=== PATIENT | male | born 1980 | race African-American/Black ===

== ENCOUNTER 2024-01-01 12:09 | Outpatient (CLI) | payer BC, SELFPAY ==
--- NOTE | ~2024-01-01 | XR_ITS ---
3 VIEWS LUMBAR SPINE Ordering provider: Bebeto Manriquez MD History: . Chronic low back pain with Lt sided sciatica . Comparison: None. FINDINGS: VERTEBRAL BODIES: No visible fracture or subluxation. DISK SPACES: Normal. SOFT TISSUES: Normal. IMPRESSION: No acute osseous abnormality lumbar spine. Reviewed, dictated and finalized at location A.
== END 2024-01-01 12:10 ==
PROVIDERS: PCP Internal Medicine; Visit Provider Internal Medicine
DX: M54.50 Low back pain, unspecified (principal); M54.30 Sciatica, unspecified side; G89.29 Other chronic pain
CPT/HCPCS: 72110

== ENCOUNTER 2024-10-25 14:53 | Emergency (ER) | payer SELFPAY ==
[2024-10-25] VITALS (7 sets, daily range): BP systolic 142–155; BP diastolic 102–111; PULSE 88–108; RESP 16–22; TEMP 36.4–36.8; O2SAT 100
--- NOTE | ~2024-10-25 | CT_ITS ---
CT brain wo con Ordering provider: Sidra York APRN History: 44 years Male with . altered mental status . Comparison: None. Technique: CT of the head without contrast. Radiation reduction technique utilized.The dose-length pr oduct was 681 mGy-cm. FINDINGS: BRAIN PARENCHYMA AND CSF SPACES: Mild leukoaraiosis and diffuse cortical atrophy. Mild atheromatous d isease. No midline shift, mass effect or hemorrhage. The brain parenchyma and CSF spaces are otherwi se normal. Empty sella turcica. VISUALIZED PARANASAL SINUSES: Well aerated. MASTOIDS: Well aerated. BONES: The bones appear intact. SOFT TISSUES: Visualized nasopharynx is normal. Superficial soft tissues are normal. IMPRESSION: No acute intracranial findings. Reviewed, dictated and finalized at location A.
--- OUTSIDE RECORDS SUMMARY | 2024-10-25 14:55 | XMS_ITS | Data Portability ---
Author Organization [facility], [facility] Address [address] [place] [address] [address] Assessment No assessment recorded. Plan of Treatment Reminders Order Date Submit Date Provider Last Modified By Organization Details Last Modified Time Details Appointments None recorded. Lab None recorded. Referral None recorded. Procedures None recorded. Surgeries None recorded. Imaging None recorded. Medication Orders varenicline tartrate 0.5 mg (11)-1 mg (42) tablets in a dose pack 2023 [facility] [employer] [id number], [address], [place], [id number], 4 10:59:26 varenicline tartrate 1 mg tablet 2023 [facility] [employer] [address], [address], [place], [id number], 4 10:59:25 mupirocin 2 % topical ointment 2023 [email or web address] Not available 12:57:37 Lexapro 10 mg tablet 2023 [facility] [employer] [id number], [address], [place], [id number], 4 10:57:25 nitroglycer in 0.4 mg sublingual tablet 2023 [facility] [employer] [id number], [address], [place], [id number], 4 12:16:28 Patient TargetsNo targets recorded. Patient InstructionsNo instructions recorded. Hospital Discharge Instructions Patient Instructions None recorded. Patient Goals None recorded. Results Created Date Observation Date Name Description Value Unit Range Abnormal Flag Note LastModifiedBy Organization Detail LastModifiedTime 06/26/20 23 06/26/2023 Agustin ol [Mass /volu me] in Blood ETOH <10.00 mg/dL 0.00-3 00.00 Not Available [facility] (Lab) [address] [place] [address] [place], [address], Not Available 06/26/20 23 06/26/2023 Gas panel - Arter ial blood PO2 96 mmHg 78-101 Not Available [facility] (Lab) [address] [place] [address] KnJ[place] bermudez, [address], Not Available 06/26/20 23 06/26/2023 Gas panel - Arter ial blood PCO2 20 mmHg 35-47 Not Available [facility] (Lab) [address] [place] [address] KnJESS [place]z, [address], Not Available 06/26/20 23 06/26/2023 Gas panel - Arter ial blood PH_ 7.400 7.350- 7.450 Not Available [facility] (Lab) [address] [place] [address] [place], [address], Not Available 06/26/20 23 06/26/2023 Gas panel - Arter ial blood SO2 99 % 93-100 Not Available [facility] (Lab) [address] [place] [address] [place], [address], Not Available 06/26/20 23 06/26/2023 Gas panel - Arter ial blood COHB 0.40 % 0.30-1 .00 Not Available [facility] (Lab) [address] [place] [address] [place], [address], Not Available 06/26/20 23 06/26/2023 Gas panel - Arter ial blood METHB 0.30 % 0.30-1 .00 Not Available [facility] (Lab) [address] [place] [address] [place], [address], Not Available 06/26/20 23 06/26/2023 Gas panel - Arter ial blood O2HB 98.30 % 85.00- 100.00 Not Available [facility] (Lab) [address] [place] [address] [place], [address], Not Available 06/26/20 23 06/26/2023 Gas panel - Arter ial blood TCO2 12.9 mmol/ L 22.1-2 9.5 Not Available [facility] (Lab) [address] [place] [address] [place], J[place], [address], Not Available 06/26/20 23 06/26/2023 Gas panel - Arter ial blood HCO3 12 mmol/ L Not Available [facility] (Lab) [address] [place] [address] [place], [address], Not Available 06/26/20 23 06/26/2023 Gas panel - Arter ial blood BASE EXCESS -9.5 mmol/ L -2.1-2 .2 Not Available [facility] (Lab) [address] [place] [address] [place], JESS, 14[address], Not Available 06/26/20 23 06/26/2023 Influ yumiko virus A and B and SARS- CoV+S ARS-C oV-2 (COVI D-19) Ag panel - Upper respi rator y speci men by Rapid immun oassa y COVID RAPID NEGATI VE NEGATI VE Negat carmen resul ts, from patie nts with sympt om onset beyon d five days, shoul d be treat ed as presu mptiv e and confi rmati on with a molec ular assay , if neces michaela, for patie nt manag ement , may be perfo rmed. Negat carmen resul ts do not rule out COVID -19 and shoul d not be used as the sole basis for treat ment or patie nt manag ement decis ions, inclu ding infec tion contr ol decis ions. Negat carmen resul ts shoul d be consi dered in the sherri xt of a patie nt's recen t expos ures, histo ry and the prese nce of clini jass signs and sympt oms consi stent with COVID -19. Not Available [facility] (Lab) [address] [place] [address] J[place] Mc, [address], Not Available 06/26/20 23 06/26/2023 Influ yumiko virus A and B and SARS- CoV+S ARS-C oV-2 (COVI D-19) Ag panel - Upper respi rator y speci men by Rapid immun oassa y FLUB Negati ve NEGATI VE Not Available [facility] (Lab) [address] [place] [address] [place], [address], Not Available 06/26/20 23 06/26/2023 Influ yumiko virus A and B and SARS- CoV+S ARS-C oV-2 (COVI D-19) Ag panel - Upper respi rator y speci men by Rapid immun oassa y FLUA Negati ve NEGATI VE Not Available [facility] (Lab) [address] [place] [address] [place], [address], Not Available 06/26/20 23 06/26/2023 Magne sium [Mass /volu me] in Serum or Plasm a MG 1.3 mg/dL 1.8-2. 5 Not Available [facility] (Lab) [address] [place] [address] [place], [address], Not Available 06/26/20 23 06/26/2023 Tropo ankita I.car diac [Mass /volu me] in Serum or Plasm a by Detec tion limit <= 0.01 ng/mL TROP 0.06 Result s Verifi ed by Repeat Analys is ng/ml 0.00-0 .03 Not Available [facility] (Lab) [address] [place] [address] [place], [address], Not Available 06/26/20 23 06/26/2023 Lacta te [Mass /volu me] in Serum or Plasm a LA 44.00 mg/dL 4.60-2 1.10 Not Available [facility] (Lab) [address] [place] [address] [place], [address], Not Available 06/26/20 23 06/26/2023 Lacta te [Mass /volu me] in Serum or Plasm a LA MMOL 4.88 mmol/ l 0.50-2 .20 Not Available [facility] (Lab) [address] [place] [address] [place], [address], Not Available 06/26/20 23 06/26/2023 Andreea duran al panel - Blood NEUTROPHILS 71 % 37-80 Not Available [facility] (Lab) [address] [place] [address] [place], [address], Not Available 06/26/20 23 06/26/2023 Andreea duran al panel - Blood LYMPHOCY 8 % 10-50 Not Available [facility] (Lab) [address] [place] [address] [place], [address], Not Available 06/26/20 23 06/26/2023 Andreea duran al panel - Blood MONOCYTE 6 % 1-8 Not Available [facility] (Lab) [address] [place] [address] [place], [address], Not Available 06/26/20 23 06/26/2023 Andreea duran al panel - Blood BANDS 14 % 0-0 Not Available [facility] (Lab) [address] [place] [address] [place], [address], Not Available 06/26/20 23 06/26/2023 Andreea duran al panel - Blood METAMYEL 1 % 0-0 Not Available [facility] (Lab) [address] [place] [address] [place], [address], Not Available 06/26/20 23 06/26/2023 Nasraa anish duran al panel - Blood RBC MORPH ABNORM AL NORMAL Not Available [facility] (Lab) [address] [place] [address] [place], [address], Not Available 06/26/20 23 06/26/2023 Andreea duran al panel - Blood PLATELET ESTIMATE ADEQUA TE ADEQUA TE Not Available [facility] (Lab) [address] [place] [address] [place], [address], Not Available 06/26/20 23 06/26/2023 Andreea duran al panel - Blood ANISOCYTOSIS 1+ NONE SEEN Not Available [facility] (Lab) [address] [place] [address] [place], [address], Not Available 06/26/20 23 06/26/2023 Andreea duran al panel - Blood MACROCYTOSIS 1+ NONE SEEN Not Available [facility] (Lab) [address] [place] [address] [place], [address], Not Available 06/26/20 23 06/26/2023 Andreea duran al panel - Blood MICROCYTOSIS 1+ NONE SEEN Not Available [facility] (Lab) [address] [place] [address] [place], [address], Not Available 06/26/20 23 06/26/2023 Andreea duran al panel - Blood STOMATOCYTES 1+ NONE SEEN Not Available [facility] (Lab) [address] [place] [address] [place], [address], Not Available 06/26/20 23 06/26/2023 Salic ylate s [Mass /volu me] in Serum or Plasm a ROCK <5.0 mg/dL 0.0-6. 0 Not Available [facility] (Lab) [address] [place] [address] [place], [address], Not Available 06/26/20 23 06/26/2023 Fibri n D-dim er FEU [Mass /volu me] in Plate let poor plasm a DDIMER 2.26 Result s Verifi ed by Repeat Analys is mg/L 0.00-0 .50 Not Available [facility] (Lab) [address] [place] [address] [place], [address], Not Available 06/26/20 23 06/26/2023 Creat ine kinas e [Enzy matic activ ity/v olume ] in Serum or Plasm a CK 908 U/L 29-208 Not Available [facility] (Lab) [address] [place] [address] [place], [address], Not Available 06/26/20 23 06/26/2023 Compr ehens carmen metab olic 2000 panel - Serum or Plasm a GLUC 158 mg/dL 66-112 Not Available [facility] (Lab) [address] [place] [address] [place], [address], Not Available 06/26/20 23 06/26/2023 Compr ehens carmen metab olic 2000 panel - Serum or Plasm a BUN 5 mg/dL 8-28 Not Available [facility] (Lab) [address] [place] [address] [place], [address], Not Available 06/26/20 23 06/26/2023 Compr ehens carmen metab olic 2000 panel - Serum or Plasm a CREAT 1.20 mg/dl 0.70-1 .40 Not Available [facility] (Lab) [address] [place] [address] [place], [address], Not Available 06/26/20 23 06/26/2023 Compr ehens carmen metab olic 2000 panel - Serum or Plasm a NA 130 mmol/ L 134-14 5 Not Available [facility] (Lab) [address] [place] [address] [place], [address], Not Available 06/26/20 23 06/26/2023 Compr ehens carmen metab olic 2000 panel - Serum or Plasm a K 3.3 mmol/ L 3.5-5. 2 Not Available [facility] (Lab) [address] [place] [address] [place], [address], Not Available 06/26/20 23 06/26/2023 Compr ehens carmen metab olic 2000 panel - Serum or Plasm a CL 87 mmol/ L 97-109 Not Available [facility] (Lab) [address] [place] [address] [place] Mc, 937[address], Not Available 06/26/20 23 06/26/2023 Compr ehens carmen metab olic 2000 panel - Serum or Plasm a CO2 15 mmol/ L 19-29 Not Available [facility] (Lab) [address] [place] [address] [place] Mc, 215[address], Not Available 06/26/20 23 06/26/2023 Compr ehens carmen metab olic 1999 panel - Serum or Plasm a CA 10.7 mg/dL 8.5-10 .3 Not Available [facility] (Lab) [address] [place] [address] J[place] Mc, 01574, Not Available 06/26/20 23 06/26/2023 Compr ehens carmen metab olic 1999 panel - Serum or Plasm a TP 7.7 g/dL 6.3-8. 3 Not Available [facility] (Lab) [address] [place] [address] [place] Mc, 575[address], Not Available 06/26/20 23 06/26/2023 Compr ehens carmen metab olic 1999 panel - Serum or Plasm a ALB 4.3 g/dL 3.4-4. 7 Not Available [facility] (Lab) [address] [place] [address] [place] Mc, 89[address], Not Available 06/26/20 23 06/26/2023 Compr ehens carmen metab olic 1999 panel - Serum or Plasm a GLOB 3.4 g/dL Not Available [facility] (Lab) [address] [place] [address] J[place] Mc, 739[address], Not Available 06/26/20 23 06/26/2023 Compr ehens carmen metab olic 2000 panel - Serum or Plasm a ALKP 73 U/L 36-103 Not Available [facility] (Lab) [address] [place] [address] [place], [address], Not Available 06/26/20 23 06/26/2023 Compr ehens carmen metab olic 2000 panel - Serum or Plasm a ALT 118 U/L 6-55 Not Available [facility] (Lab) [address] [place] [address] J[place] Mc, 873[address], Not Available 06/26/20 23 06/26/2023 Compr ehens carmen metab olic 2000 panel - Serum or Plasm a AST 114 U/L 9-42 Not Available [facility] (Lab) [address] [place] [address], [address], Not Available 06/26/20 23 06/26/2023 Compr ehens carmen metab olic 2000 panel - Serum or Plasm a TBIL 2.4 mg/dL 0.2-0. 9 Not Available [facility] (Lab) [address] [place] [address], [address], Not Available 06/26/20 23 06/26/2023 Compr ehens carmen metab olic 2000 panel - Serum or Plasm a BCRATIO 4 ratio 6-25 Not Available [facility] (Lab) [address] [place] [address], [address], Not Available 06/26/20 23 06/26/2023 Compr ehens carmen metab olic 2000 panel - Serum or Plasm a AGRATIO 1.3 ratio Not Available [facility] (Lab) [address] [place] [address], [address], Not Available 06/26/20 23 06/26/2023 Compr ehens carmen metab olic 2000 panel - Serum or Plasm a EGFRAA 86 mL/mi n Not Available [facility] (Lab) [address] [place] [address], [address], Not Available 06/26/20 23 06/26/2023 Compr ehens carmen metab olic 2000 panel - Serum or Plasm a EGFRNAA 71 mL/mi n Not Available [facility] (Lab) [address] [place] [address], [address], Not Available 06/26/20 23 06/26/2023 Compr ehens carmen metab olic 2000 panel - Serum or Plasm a ANIONG 28.00 Not Available [facility] (Lab) [address] [place] [address], [address], Not Available 06/26/20 23 06/26/2023 Urina lysis compl ete W Refle x Cultu re panel - Urine COLOR Yellow YELLOW Not Available [facility] (Lab) [address] [place] [address] J[place] Mc, 211[address], Not Available 06/26/20 23 06/26/2023 Urina lysis compl ete W Refle x Cultu re panel - Urine JERRICA Clear CLEAR Not Available [facility] (Lab) [address] [place] [address] [place] Mc, 79984, Not Available 06/26/20 23 06/26/2023 Urina lysis compl ete W Refle x Cultu re panel - Urine GLU Negati ve mg/dL NEGATI VE Not Available [facility] (Lab) [address] [place] [address] J[place] Mc, 27[address], Not Available 06/26/20 23 06/26/2023 Urina lysis compl ete W Refle x Cultu re panel - Urine BILI Modera te NEGATI VE Not Available [facility] (Lab) [address] [place] [address] [place] JESS, 76[address], Not Available 06/26/20 23 06/26/2023 Urina lysis compl ete W Refle x Cultu re panel - Urine KETONE 15 mg/dL NEGATI VE Not Available [facility] (Lab) [address] [place] [address] [place] JESS, 108[address], Not Available 06/26/20 23 06/26/2023 Urina lysis compl ete W Refle x Cultu re panel - Urine SG 1.010 1.005- 1.020 Not Available [facility] (Lab) [address] [place] [address] [place] JESS, [address], Not Available 06/26/20 23 06/26/2023 Urina lysis compl ete W Refle x Cultu re panel - Urine BLOOD Trace- intact NEGATI VE Not Available [facility] (Lab) [address] [place] [address] [place] JESS, 104[address], Not Available 06/26/20 23 06/26/2023 Urina lysis compl ete W Refle x Cultu re panel - Urine PH 6.0 5.5-7. 5 Not Available [facility] (Lab) [address] [place] [address] [place], [address], Not Available 06/26/20 23 06/26/2023 Urina lysis compl ete W Refle x Cultu re panel - Urine PRO 100 mg/dL mg/dL NEGATI VE Not Available [facility] (Lab) [address] [place] [address] [place], [address], Not Available 06/26/20 23 06/26/2023 Urina lysis compl ete W Refle x Cultu re panel - Urine URO 2.0 E.U./d L 0.2-1. 0 Not Available [facility] (Lab) [address] [place] [address] [place], 595[address], Not Available 06/26/20 23 06/26/2023 Urina lysis compl ete W Refle x Cultu re panel - Urine NITR Negati ve NEGATI VE Not Available [facility] (Lab) [address] [place] [address] [place], [address], Not Available 06/26/20 23 06/26/2023 Urina lysis compl ete W Refle x Cultu re panel - Urine LEUK Negati ve NEGATI VE Not Available [facility] (Lab) [address] [place] [address] [place], [address], Not Available 06/26/20 23 06/26/2023 Urina lysis compl ete W Refle x Cultu re panel - Urine UWBC 0-3 0-3 Not Available [facility] (Lab) [address] [place] [address] [place], [address], Not Available 06/26/20 23 06/26/2023 Urina lysis compl ete W Refle x Cultu re panel - Urine URBC 3-5 0-3 Not Available [facility] (Lab) [address] [place] [address] [place], [address], Not Available 06/26/20 23 06/26/2023 Urina lysis compl ete W Refle x Cultu re panel - Urine SQEPCELLS 0-3 NONE SEEN Not Available [facility] (Lab) [address] [place] [address], [address], Not Available 06/26/20 23 06/26/2023 Urina lysis compl ete W Refle x Cultu re panel - Urine BACTERIA TRACE NONE SEEN Not Available [facility] (Lab) [address] [place] [address], [address], Not Available 06/26/20 23 06/26/2023 Urina lysis compl ete W Refle x Cultu re panel - Urine UACR NO Not Available [facility] (Lab) [address] [place] [address], [address], Not Available 06/26/20 23 06/26/2023 Proca lcito ankita [Mass /volu me] in Serum or Plasm a PROCAL 2.22 ng/mL 0.00-0 .15 Not Available [facility] (Lab) [address] [place] [address], [address], Not Available 06/26/20 23 06/26/2023 Creat ine kinas e.MB [Mass /volu me] in Serum or Plasm a CKMB 8.49 ng/mL 0.60-4 .80 Not Available [facility] (Lab) [address] [place] [address], [address], Not Available 06/26/20 23 06/26/2023 Thyro xine (T4) free [Mass /volu me] in Serum or Plasm a FT4 1.19 ng/dL 0.61-1 .12 Not Available [facility] (Lab) [address] [place] [address], [address], Not Available 06/26/20 23 06/26/2023 Natri ureti c pepti de B [Mass /volu me] in Blood BNP 1606 Result s Verifi ed by Repeat Analys is pg/mL 0-100 Not Available [facility] (Lab) [address] [place] [address], [address], Not Available 06/26/20 23 06/26/2023 Thyro tropi n [Unit s/vol ume] in Serum or Plasm a by Detec tion limit <= 0.005 mIU/L TSH 2.760 uIU/m L 0.440- 4.990 Not Available [facility] (Lab) [address] [place] [address] [place], [address], Not Available 06/26/20 23 06/26/2023 CBC W Auto Diffe renti al panel - Blood WBC 15.50 Result s Verifi ed by Repeat Analys is x10^3 /UL 4.70-1 0.70 Not Available [facility] (Lab) [address] [place] [address] [place] Mc, 20[address], Not Available 06/26/20 23 06/26/2023 CBC W Auto Diffe renti al panel - Blood RBC 4.05 X10^6 /UL 3.72-5 .35 Not Available [facility] (Lab) [address] [place] [address] [place], 367[address], Not Available 06/26/20 23 06/26/2023 CBC W Auto Diffe renti al panel - Blood HGB 13.9 g/dL 12.8-1 6.3 Not Available [facility] (Lab) [address] [place] [address] [place], [address], Not Available 06/26/20 23 06/26/2023 CBC W Auto Diffe renti al panel - Blood HCT 40.4 % 36.1-4 7.1 Not Available [facility] (Lab) [address] [place] [address] [place], [address], Not Available 06/26/20 23 06/26/2023 CBC W Auto Diffe renti al panel - Blood MCV 99.7 fL 81.0-9 6.8 Not Available [facility] (Lab) [address] [place] [address] [place] JESS, 737[address], Not Available 06/26/20 23 06/26/2023 CBC W Auto Diffe renti al panel - Blood MCH 34.3 PG 27.1-3 3.3 Not Available [facility] (Lab) [address] [place] [address] [place], 80[address], Not Available 06/26/20 23 06/26/2023 CBC W Auto Diffe renti al panel - Blood MCHC 34.4 g/dL 32.8-3 5.5 Not Available [facility] (Lab) [address] [place] [address] [place], 26[address], Not Available 06/26/20 23 06/26/2023 CBC W Auto Diffe renti al panel - Blood RDW 15.7 % 0.0-14 .8 Not Available [facility] (Lab) [address] [place] [address] [place], [address], Not Available 06/26/20 23 06/26/2023 CBC W Auto Diffe renti al panel - Blood PLT 226 x10^3 /UL 126-42 1 Not Available [facility] (Lab) [address] [place] [address] [place] JESS, 338[address], Not Available 06/26/20 23 06/26/2023 CBC W Auto Diffe renti al panel - Blood MPV 9.10 fL 7.00-1 1.50 Not Available [facility] (Lab) [address] [place] [address] [place] JESS, 37[address], Not Available 06/26/20 23 06/26/2023 CBC W Auto Diffe renti al panel - Blood %NEUT 85.20 % 37.00- 80.00 Not Available [facility] (Lab) [address] [place] [address] [place] JESS, 32287, Not Available 06/26/20 23 06/26/2023 CBC W Auto Diffe renti al panel - Blood %LYMPH 5.80 % 10.00- 50.00 Not Available [facility] (Lab) [address] [place] [address] [place] JESS, 48464, Not Available 06/26/20 23 06/26/2023 CBC W Auto Diffe renti al panel - Blood %MONO 8.70 % 3.00-1 2.00 Not Available [facility] (Lab) [address] [place] [address] [place], 669[address], Not Available 06/26/20 23 06/26/2023 CBC W Auto Diffe renti al panel - Blood %EOS 0.0 % 0.0-7. 0 Not Available [facility] (Lab) [address] [place] [address] [place] Mc, 436[address], Not Available 06/26/20 23 06/26/2023 CBC W Auto Diffe renti al panel - Blood %BASO 0.30 % 0.00-2 .00 Not Available [facility] (Lab) [address] [place] [address] [place], [address], Not Available 06/26/20 23 06/26/2023 CBC W Auto Diffe renti al panel - Blood #NEUT 13.300 x10^3 /UL 2.000- 6.900 Not Available [facility] (Lab) [address] [place] [address] [place], [address], Not Available 06/26/20 23 06/26/2023 CBC W Auto Diffe renti al panel - Blood #LYMPH 0.900 x10^3 /UL 0.600- 3.400 Not Available [facility] (Lab) [address] [place] [address] [place], [address], Not Available 06/26/20 23 06/26/2023 CBC W Auto Diffe renti al panel - Blood #MONO 1.400 x10^3 /UL 0.100- 0.900 Not Available [facility] (Lab) [address] [place] [address] [place], [address], Not Available 06/26/20 23 06/26/2023 CBC W Auto Diffe renti al panel - Blood #EOS 0.000 K/uL 0.000- 0.700 Not Available [facility] (Lab) [address] [place] [address] [place], [address], Not Available 06/26/20 23 06/26/2023 CBC W Auto Diffe renti al panel - Blood #BASO 0.000 K/uL 0.000- 0.200 Not Available [facility] (Lab) [address] [place] [address], [address], Not Available 06/26/20 23 06/26/2023 CBC W Auto Diffe renclaudia al panel - Blood MDW 27.70 0.00-2 0.00 The predi ctive value of MDW for ident ifyin g sepsi s in patie nts with hemat ologi jass abnor malit ies has not been estab lishe d For adult s in ED, MDW > 20.0 may be assoc iated with a highe r risk of sepsi s durin g the first 12 hrs of hospi erica admis victorina Not Available [facility] (Lab) [address] [place] [address], [address], Not Available 06/26/20 23 06/26/2023 C react carmen prote in [Mass /volu me] in Serum or Plasm a CRP 326.70 Result s Verifi ed by Repeat Analys is mg/L <5.00 Not Available [facility] (Lab) [address] [place] [address], 455[address], Not Available 06/30/20 23 06/30/2023 Bacte sherrill ident ified in Blood by Cultu re PLACEHOLDER SENT TO [facility] Not Available [facility] (Lab) [address] [place] [address], 201[address], Not Available 06/30/20 23 06/30/2023 Bacte sherrill ident ified in Blood by Cultu re BLOOD CULTURE, ROUTINE Final report Not Available [facility] (Lab) [address] [place] [address], 490[address], Not Available 06/30/20 23 06/30/2023 Bacte sherrill ident ified in Blood by Cultu re RESULT 1 Commen t Strep tococ cus pneum oniae Recov ered from aerob ic and anaer obic bottl es. Use of cefot axime or ceftr iaxon e in menin gitis requi res thera py with maxim um doses . (CLSI ) For cefot axime , use of inter preti ve crite sherrill for nonme ningi tis requi res doses appro priat e for cleve us pneum ococc al infec tions (e.g. , at least 1 g (adul ts) or 50 mg/kg (chil dren) every eight hours or more frequ ently ). (CLSI ) Use of penic illin in menin gitis requi res thera py with maxim um doses of IV penic illin (e.g. at least 3 юлия on units every 4 hours in adult s with barbara l renal funct ion). (CLSI ) This nonme ningi tis penic illin -susc eptib le pneum ococc al isola te can be consi dered susce ptibl e to the oral agent s amoxi cilli n, amoxi cilli n-cla vulan ic acid, ampic illin , cefac sara, cefdi berto, cefdi toren , cefpo doxim e, cefpr ozil, cefur oxime , and lorac arbef , and to the paren teral agent s ampic illin , ampic illin -sulb actam , cefep daniele, cefot axime , cefti zoxim e, ceftr iaxon e, cefur oxime , ertap enem, imipe nem, and merop enem, for appro angelina indic ation s. Doses of IV penic illin of at least 2 юлия on units every 4 hours in adult s with barbara l renal funct ion (12 юлия on units per day) are effec tive in treat ing nonme ninge al pneum ococc al infec tions due to strai ns that are susce ptibl e to penic illin . (CLSI 2010) MURTAZA Berrios ON 06/28 @ 3PM Not Available [facility] (Lab) [address] [place] [address], [place], [address], Not Available 06/30/20 23 06/30/2023 Bacte sherrill ident ified in Blood by Cultu re RESULT 2 Not applic able Not Available [facility] (Lab) [address] [place] [address], [place], [address], Not Available 06/30/2006/30/2023 Bacte sherrill ident ified in Blood by Cultu re ANTIMICROBIA L SUSCEPTIBILI TY Commen t S = Susce ptibl e; I = Inter media te; R = Resis tant P = Posit carmen; N = Negat carmen MICS are expre ssed in micro grams per mL Antib iotic RSLT# 1 RSLT# 2 RSLT# 3 RSLT# 4 Cefot axime (meni ngiti s) S Cefot axime (non- menin gitis ) S Ceftr iaxon e (meni ngiti s) S Ceftr iaxon e (non- menin gitis ) S Eryth romyc in S Levof loxac in S Merop enem S Penic illin (oral pen V) S Penic illin IV (meni ngiti s) S Penic illin IV (non- menin g) S Tetra cycli ne S Trime thopr im/Barnard lfa S Vanco mycin S Not Available [facility] (Lab) [address] [place] [address], [address], Not Available 07/02/19 24 07/02/2023 Bacte sherrill ident ified in Blood by Cultu re 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 Recei angelina pedia tric bottl e only. Not Available [facility] (Lab) [address] [place] [address] [place], [address], Not Available 06/26/20 [facility] [address] [address] ____ ____ RADIOL OGY___ P ATIENT NAME: KELLY JENKINS PT ACC #: [id number] 8DOB: 1979 AGE: 43 Y PT SEX:M TYPE: Admit/ Discha rge Date: / / - / / Melissa rojas Phys: Babar De La Oedic al Record #: [id number] X-ray Number : [id number] 78Pati ent Phone Number : [phone] xr chest single vw COMPLE TE: 07:57_ _EXAM: CHEST ONE- EW HISTOR Y: Short of breath COMPAR HILDA: None FINDIN GS: Cardia c silhou ette is normal size. Monito ring leads attach ed to thetho rax. Increa sed opacit y or densit y in the right hilar region compar ed to thelef t. Minima l inters titial densit y right hilar area and medial right lowerl obe. No pleura l fluid. No pneumo thorax . No acute findin g involv ing skelet alstru ctures . IMPRES VICTORINA:1 . Cardia c size appear s normal .2. Increa sed densit y in the right hilum. Findin gs may repres ent somead enopat hy, small neopla sm cannot be exclud ed.3. Minima l inters titial densit y right hilar region and medial right lower lobema y repres ent mild or develo ping pneumo ynes. Short- term follow -up two-vi ew chesto r CT scanni ng recomm ended for additi onal evalua tion Result s of chest x-ray discus sed by phone at 7:[address] Ronan sylvester ___INT ERPRET ING RADIOL OGIST: Claudio Bernal ch, D.O.EL ECTRON ICALLY SIGNED BY: lCaudio Bernal ch, D.O.Tr anscarleen ption Initia ls: MLP Not Available [facility] (Radiology) [address], [place], [address], Not Available 06/26/20 23 XR Chest Singl e view Transc riptio n Time: 07: Transc riptio n Date: Signed Date/T daniele: 07:27* UNS IGNED TRANSC RIPTIO NS ARE PRELIM INARY REPORT S AND DO NOTREP RESENT MEDICA L OR LEGAL DOCUME NTS. Not Available [facility] (Radiology) [address], [place], [address], Not Available 06/26/[address], angio gram, chest , w/ contr ast [place] [address] [place] [address] [phone]____ ____ RADIOL OGY___ P ATIENT NAME: KELLY JENKINS PT ACC #: [id number] 8DOB: 1979 AGE: 43 Y PT SEX:M TYPE: Admit/ Discha rge Date: / / - / / Orderi bob Phys: Babar De La O JMedic al Record #: [id number] X-ray Number : [id number] 78Pati ent Phone Number : [phone] cta chest w/cont rast COMPLE TE: 09:14_ _EXAM: CTA OF THE PULMON JADEN ARTERI ES WITH CONTRA ST TECHNI QUE: CTA of the pulmon jaden arteri es was perfor med with contra st. 2-D and3-D recons tructi ons were perfor med. HISTOR Y: Abnorm al chest x-ray COMPAR HILDA: None. FINDIN GS: Pulmon jaden arteri es: No pulmon jaden embolu s detect ed. Lungs/ pleura : Consol idatin g infilt rate in the right lower lobe. No pleura leffus ion.No mass eviden t. Medias tinum: Small hilar lymph node on the right measur ing 1.2 cm. Cardio vascul ar: No perica rdial effusi on. Athero sclero sis of the aorta and branch vessel s. Anaya ry artery calcif icatio ns. Chest wall/a xillae /thora cic inlet: No mass or adenop athy. Imaged upper abdome n: Diffus e hepati c steato sis. Adrena l hyperp lasia. Bones: Degene rative change thorac ic spine. IMPRES VICTORINA: 1. No eviden ce of pulmon jaden embolu s2. Diffus e hepati c steato sis3. Consol idatin g infilt rate/p neumon ia in the right lower lobe.. There is noobvi ous endobr onchia l lesion or obstru cting mass eviden t.. Follow -up may be ofbene fit to exclud e any potent ial underl leonila Not Available [facility] (Radiology) [address], [place], [address], Not Available 06/26/[address], angio gram, chest , w/ contr ast All CT scans are perfor med using dose optimi zation techni ques as approp riate tothe perfor med exam and includ esat least one of the follow ing: Automa miguel angel exposu re contro l, adjust ment of the mAand/ or kV accord ing to size, and the use of iterat carmen recons tructi on techni que. All CT scans are perfor med using dose optimi zation techni ques as approp riate tothe perfor med exam and includ e at least one of the follow ing: Automa miguel angel exposu re contro l, adjust ment of the mAand/ or kV accord ing to size, and the use of iterat carmen recons tructi on techni que. __INTE RPRETI NG RADIOL OGIST: Bob Kay M.D.EL ECTRON ICALLY SIGNED BY: Bob Kay M.D.Tr anscri ption Initia ls: JOVANNI Transc riptio n Time: 09:14 Transc riptio n Date: Signed Date/T daniele: 09:14* UNS IGNED TRANSC RIPTIO NS ARE PRELIM INARY REPORT S AND DO NOTREP RESENT MEDICA L OR LEGAL DOCUME NTS. Not Available [facility] (Radiology) [address] [place] [address], [place], [address], Not Available Result Notes None recorded. Problems Name Problem SNOMED Code Status Onset Date Resolution Date Notes Provider Name and Address Organization Details Recorded Time Alcoholic hepatitis 836818392 Active [address] [address], [place], [address], [facility] 4 16:00:18 Macrocytic anemia 27315316 Active [address] [address], [place], [address], [facility] 4 16:00:35 Hepatomegaly 16835878 Active [address], [place], [address], [facility] 4 16:01:10 Steatotic liver disease 924001960 Active [address] [address], [place], [address], [facility] 4 16:01:21 Congestive heart failure 10413809 Active 2023 Merari Jeana [address] [place] [address], [place], [address], [facility] 4 16:01:34 Obstructive sleep apnea syndrome 82746768 Active 2023 [facility] [address] [place] [address], [place], [address], [facility] 4 16:01:42 Paroxysmal atrial fibrillation 824066346 Active [address], [place], [address], [facility] 4 16:01:58 Essential hypertension 44175150 Active [address], [place], [address], [facility] 4 16:02:12 Hyperlipidemia 88845766 Active [address], [place], [place], [address], [facility] 4 16:02:22 Coronary arterioscleros is 25007902 Active 2023 ELVA SPRINGER NP [address] [place] [address] Fran, [place], [place], [address], [facility] 4 11:25:48 Disorder of coronary artery 352723884 Active 2023 Sandra li NP [address] [place], [place] [address] [address], [place], [address], [facility] 4 10:41:00 Chronic congestive heart failure 58118984 Active 2023 Sandra li NP [address] [place] [address], [place], [address], [facility] 4 10:42:00 Notes:(tubular adenoma of co namita removed 07/27/22) Problem Notes None recorded. Procedures Surgical History Date Name Laterality Status Provider Name and Address Organization Details Recorded Time placement of stent in cardiac conduit completed Merari Hills [address], [place], [address], [facility] 07/15/2023 11:09:16 Imaging Results Imaging Date Name Status LastModified by Organiz ation Details LastModified Time 06/26/2023 XR Chest Single view active Not Available [facility] (Radiology) [address], [place], [address], Not Available 06/26/2023 CT, angiogram, chest, w/ contrast active Not Available [facility] (Radiology) [address], [place], [address], Not Available Procedure Notes None recorded. Medical Equipment None Reported. Allergies No known drug allergies Medications Name Sig Start Date Stop Date Status Note LastModified by Organization Details LastModified Time atorvastati n 80 mg tablet TAKE 1 TABLET DAILY BY MOUTH 2023 active Not Available Not Available Not Avai lable carvedilol 12.5 mg tablet TAKE 1 TABLET BY MOUTH TWICE DAILY WITH MEALS active Not Available Not Available No t Available thiamine HCl (vitamin B1) 100 mg tablet Take 1 tablet every day by oral route. active Not Available Not Available No t Available potassium chloride ER 10 mEq tablet,exte nded release TAKE 1 TABLET BY MOUTH EVERY DAY active Not Available Not Available No t Available aspirin 81 mg tablet,michele yed release TAKE 1 TABLET BY MOUTH EVERY DAY active Not Available Not Available No t Available spironolact one 25 mg tablet TAKE 1 TABLET BY MOUTH EVERY DAY active Not Available Not Available No t Available carvedilol 3.125 mg tablet Take 1 tablet twice a day by oral route. 07/15 completed Not Available Not Available Not Available nitroglycer in 0.[address] 1 tablet as needed by sublingua l route. active Not Available Not Available No t Available folic acid 1 mg tablet TAKE 1 TABLET DAILY BY MOUTH 2023 active Not Available Not Available Not Avai lable mupirocin 2 % topical ointment APPLY A SMALL AMOUNT TO THE AFFECTED AREA BY TOPICAL ROUTE 3 TIMES PER DAY 2023 active Not Available Not Available Not Avai lable furosemide 20 mg tablet TAKE 1 TABLET BY MOUTH EVERY DAY 2023 active Not Available Not Available Not Avai lable Lexapro 10 mg tablet Take 1 tablet(s) every day by oral route. active Not Available Not Available No t Available multivitami n every day active Not Available Not Available No t Available varenicline tartrate 1 mg tablet Take 1 tablet(s) twice a day by oral route. 2023 active Not Available Not Available Not Avai lable varenicline tartrate 0.5 mg (11)-1 mg (42) tablets in a dose pack TAKE 1 STARTER PK BY MOUTH active Not Available Not Available No t Available B-1 100 mg tablet Take by oral route. active Not Available Not Available No t Available Brilinta 90 mg tablet TAKE 1 TABLET BY MOUTH TWICE DAILY active Not Available Not Available No t Available Jardiance 10 mg tablet Take 1 tablet every day by oral route. active Not Available Not Available No t Available Entresto 24 mg-26 mg tablet TAKE 1 TABLET BY MOUTH TWICE DAILY active Not Available Not Available No t Available Vitals Date Recorded Body height Oxygen saturation Oxygen saturation in Arterial blood by Pulse oximetry Heart rate Respiratory rate Body temperature Body mass index (BMI) Body weight Systolic blood pressure Diastolic blood pressure Provider Name and Address Organization Details Last Updated DateTime 4 179.07 cm 97 % 97 % 98 /min 18 /min 97.1 [degF] 30.6 kg/m2 43190.3 9 g 110 mm[Hg] 84 mm[Hg] Mis Michael [facility] 4 10:01:57 Date Recorded Body height Body mass index (BMI) Body weight Respiratory rate Heart rate Oxygen saturation Oxygen saturation in Arterial blood by Pulse oximetry Body temperature Systolic blood pressure Diastolic blood pressure Provider Name and Address Organization Details Last Updated DateTime 4 179.07 cm 29.6 kg/m2 45059.8 1 g 18 /min 97 /min 95 % 95 % 96.2 [degF] 110 mm[Hg] 80 mm[Hg] Merarianne Hills [address] [address], [place], [address] [place] [address] 4 11:14:01 Social History Question Answer Notes LastModified by Organizat ion Details LastModified Time Tobacco Smoking Status Current Every Day Smoker Merari Hills [address] [address], [place], [address], [facility] 07/15/2023 11:07:53 What Is Your Level Of Alcohol Consumption? None Stop Drinking 1 Month Ago Information not available 07/15/2023 What Is Your Code Status? 0 FANNIE Information not available 08/11/2023 In The 14 Days Before Symptom Onset, Have You Had Close Contact With A Laboratory-confir med COVID-19 While That Case Was Ill? No Information not available 07/15/2023 In The 14 Days Before Symptom Onset, Have You Had Close Contact With A Person Who Is Under Investigation For COVID-19 While That Person Was Ill? No Information not available 07/15/2023 Have You Been To An Area Known To Be High Risk For COVID-19? No Information not available 07/15/2023 Have You Processed Blood Or Body Fluids From An Ebola Virus Disease Patient Without Appropriate PPE? No Information not available 07/15/2023 Do You Reside In Or Have You Traveled To An Area Where Ebola Virus Transmission Is Active? No Information not available 07/15/2023 Have You Recently Or Are You Planning To Travel To An Area With Zika Virus? No Information not available 07/15/2023 Do You Use Any Illicit Or Recreational Drugs? No Information not available 07/15/2023 Sex: Unknown Functional Status None recorded. Mental Status None recorded. Family History Nothing Reported. Medical History Condition Response Allergies (Food, seasonal, environmental ) N Coronary Artery Disease N Vitamin B 12 deficiency N Gout N Other N Thyroid Disease N Atrial Fibrillation N Kidney Stones N Lung Disease N COPD N Depression N Hypothyroidism N Peripheral Arterial Disease N TIA N Deep Vein Thrombosis N Polycystic ovary syndrome N Anxiety Disorder N Autoimmune disease N Muscle, Joint, or Bone Problems N Obesity N Vision or Eye Problems N Arthritis N Chronic pain N Cancer N IBS N Stroke N Vitamin D Deficiency N Benign Prostatic Hypertrophy N GERD N High Cholesterol Y Aortic Aneurysm N Neurologic Disorder N Liver Disease N Arrhythmia N Rheumatoid Arthritis N Headaches N Fibromyalgia N Kidney Disease N Cologuard N Kidney Problems N Migraines N Acne N ADD/ADHD N Skin Problems N Pulmonary nodule N Anemia N Constipation N Ulcers N Bladder Problems N Osteopenia N Prediabetes N Mental Illness N Diabetes N Pulmonary (TB, Asthma) N Cardiomyopathy N Degenerative Disc Disease N Seizures/Epilepsy N AIDS/HIV N Myocardial Infarction N Congestive Heart Failure (CHF) N Valvular Heart Disease N Insomnia N Diverticulitis N Asthma N Atrial Flutter N Lupus N Substance Abuse N Peripheral Vascular Disease N Sleep Apnea N Warfarin Management N Hepatitis N DJD N Heart Disease N Neuropathy N Pulmonary Embolism N Hypertension Y Autism Spectrum Disorder (ASD) N Osteoporosis N Hematologic Disease N Immunizations Vaccine Type Date Status Note Provider Nam e and Address Organization Details Recorded Time Tdap 08/08/2023 completed Sandra Aguirre NP [address] [address], [place], [address], [facility] 08/08/2023 11:43:38 Past Encounters Encounter ID Performer Location Encounter Start Date Encounter Closed Date Diagnosis/Indication Diagnosis SNOMED-CT Code Diagnosis ICD10 Code Diagnosis Note [id number] Emergency Room [address] [place] [address] [place] [address] 06/26/2023 06:59:00 06/26/2023 18:03:00 [id number] Desiree Borrero Respirato ry Therapy [address] [place] [address] 07/15/2023 10:46:00 07/15/2023 17:00:00 Health Concerns Section Related Observation LastModified by Organization Detai ls LastModified Time None Recorded Concern Status LastModified by Organization Details LastModified Time None Recorded Advance Directives Directive None Recorded Payers Encounter Date Sequence Insurance Name Policy Number Policy Robin Covered Member ID Robin Member ID Guarantor Name 07/15/2023 1 [place] [id number] 3 Kelly Mccullough [id number] Kelly Mccullough 08/08/2023 1 [place] [id number] 3 Kelly Mccullough [id number] Kelly Mccullough Notes Date Note Type Note Provider Name and Address Organization Details Recorded Time 07/15/2023 text/html New Patient: 43 year old male here today to establish care after recent hospitalization at [facility] under care of Dr Ardon.ER visit on 06/26/23 at [facility] for complaints of dyspnea and was later transferred to [facility] with clinical impression: Lactic Acidosis, Chronic systolic left ventricular heart failure, New onset paroxysmal supraventricular tachycardia, Acute myocardial infarction with elevated markers (NSTEMI), mild nontraumatic rhabdomyolysis, Acute heaptitis, hypokalemia, moderate hypomagnesemia, moderate hyponatremia, and possible viral and bacterial pneumonia. Pt reports that he is feeling much better and has quit drinking about 1 month ago and has cut down on smoking to 3 cigarettes/day. Pt is asking for a release to work. 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 He cannot be around any heavy equipment due to Lifevest, and cannot do any arduous mountain hiking. Patient denies any chest pain but continues to have exertional dyspnea, although he reports being able to walk a mile. Patient denies any palpitations, dizziness/lightleadedn ess, syncope or pre-syncope. He is wearing Zoll [employer]vest presently, starting on 07/05/23, for DCM with EF 10-15%. -07/03/23 LHC > BACILIO prox left circ to distal left circ - totally occluded at prox end; RCA 30% mid stenosis; PDA is small to medium; posterior lateral branch is 100% occluded; severe global hypokinesis, EF 15-20% (Dr. 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 Vega at [facility]) PMH:1. CAD, s/p BACILIO to LCX November 2021, then right PVB and LCX FILL TECHNICIAN BACILIO Jul 2023.2. CHF, HFrEF, 15-20%3. HTN4. Hyperlipidema5. Alcoholic steatohepatitis6. macrocytic anemia7. paroxysmal atrial fibrillation Past Surgical Hx:1. LHC with PCI x 2 Social Hx:1. 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 Single, no children3. Current smoker, down to 3 cigarettes per day, down from 1 PPD4. ETOH - quit completely about 1 month ago5. Denies history illicit drug use/abuse Family Hx:1. Father - alive, CAD, HTN2. Mother - alive, MS3. Siblings - 1 sister, no known health history4. Maternal grandmother - T2DM5. Paternal grandparents - history unknown ELVA SPRINGER, TAYLOR [address] [place] [address], [place], [address], [facility] 07/15/2023 12:16:37 08/08/2023 text/html 43 yr old presdisha ts today as a new pt and to [facility] care . Pt needs a follow up he was in ER Jun 262022 with heart issues . Pt was in ER with CHF. and was admitted for 1 week. Pt currently wearing heart monitor Has f/u with Dr. Ardon in August Sandra Aguirre NP [address] [facility] [address], [place], [address], [facility] 08/08/2023 11:49:49
--- OUTSIDE RECORDS SUMMARY | 2024-10-25 14:56 | XMS_ITS | Patient Health Record ---
Author Organization [facility] Address [address] [place] [address] Care Team Providers Care Procurement Professional Logistics Name Role Phone Declan Bebeto Primary Care Provider [phone] Pete Aquino Unavailable [phone] Liliana Haney Unavailable [phone] Yoli Skaggs Unavailable [phone] Ivon Castro Unavailable [phone] SabBela limon Unavailable [phone] Allergies No Known Allergies Results Component Value Reference Range Notes Magnesium, Serum* Reviewed date:02/25/2024 04:54:22 PM Interpretation: Performing Lab:[facility], [address] [facility], Phone - [phone], [facility] - [facility] Notes/Report: Magnesium 2.2 1.6-2.3 mg/dL Basic Metabolic Panel (8)* Reviewed date:02/26/2024 12:42:01 PM Interpretation: Performing Lab:[facility], [address] [facility], Phone - [phone], [facility] - [facility] Notes/Report: Glucose 103 70-99 mg/dL BUN 10 6-24 mg/dL Creatinine 0.88 0.76-1.27 mg/dL eGFR 110 >59 mL/min/1.73 BUN/Creatinine Ratio 11 9-20 Sodium 138 134-144 mmol/L Potassium 4.6 3.5-5.2 mmol/L Chloride 104 96-106 mmol/L Carbon Dioxide, Total 20 20-29 mmol/L Calcium 9.9 8.7-10.2 mg/dL Xray : Spines, lumbar comple te Reviewed date:01/20/2024 03:44:43 PM Interpretation: Performing Lab: Notes/Report: Basic Metabolic Panel (8)* Reviewed date:03/23/2024 03:41:24 PM Interpretation: Performing Lab:[facility], [address] [facility], Phone - [phone], Director - [facility] Notes/Report: Glucose 95 70-99 mg/dL BUN 9 6-24 mg/dL Creatinine 0.95 0.76-1.27 mg/dL eGFR 102 >59 mL/min/1.73 BUN/Creatinine Ratio 9 9-20 Sodium 138 134-144 mmol/L Potassium 4.5 3.5-5.2 mmol/L Chloride 100 96-106 mmol/L Carbon Dioxide, Total 22 20-29 mmol/L Calcium 10.1 8.7-10.2 mg/dL Basic Metabolic Panel (8)* Reviewed date:03/24/2024 10:53:08 AM Interpretation: Performing Lab:[facility], [address] [facility], Phone - [phone], Director - [facility] Notes/Report: Glucose 113 70-99 mg/dL BUN 15 6-24 mg/dL Creatinine 1.01 0.76-1.27 mg/dL eGFR 95 >59 mL/min/1.73 BUN/Creatinine Ratio 15 9-20 Sodium 138 134-144 mmol/L Potassium 4.9 3.5-5.2 mmol/L Chloride 102 96-106 mmol/L Carbon Dioxide, Total 23 20-29 mmol/L Calcium 9.9 8.7-10.2 mg/dL Reason For Referral Reason Therapy, currently o n MRU Diagnosis 1 Generalized anxiety disorder (F41.1) Diagnosis 2 Alcohol use disorder (F10.99) Referral Organization [facility] Referring Provider First Name Ivon Referring Provider Last Name Matthew Referring Provider Speciality Psychiatry Referred Provider Specialty Behavioral [facility] General Notes Ivon Castro 04:36:08 PM > Client with recent sobriety from [facility]. Struggles with anxiety and, at times, irritability. Please refer for therapy. Thank you. Clinical Notes Emeli Bailey 11/21 10:32:21 AM > HN met with client while admitted to the MRU in [place]. Client was given the process to start therapy with [facility]. Referral Priority Routine Reason prefers Dr. Naranjo at [facility] cardiology in [facility] Diagnosis 1 Coronary artery dise ase (I25.10) Referral Organization [facility] Referring Provider First Name Bebeto Referring Provider Last Name Declan Referring Provider Speciality Internal M edicine Referred Provider Specialty Cardiology General Notes EUGENIA Aguilera, Tara Arredondo 04/17/2024 08:51:37 AM > Referral to Dr. Shar Naranjo, [place] . Letter to pt. Clinical Notes Dr. Shar Naranjo, [address], [address], [facility] [address], , Referral Priority Routine Reason Sleep Medicine Diagnosis 1 Sleep disturbance, u nspecified (G47.9) Referral Organization [facility] Referring Provider First Name Ivon Referring Provider Last Name Matthew Referring Provider Speciality Psychiatry Referred Provider Specialty Sleep Medici ne General Notes Ivon Castro 03/2024 08:32:55 AM > Trouble with falling and staying asleep, daytime fatigue. Sending referral for sleep medicine. Thank you. Clinical Notes Jose Alberto BELLO, Michela 03:41:48 PM > Sleep Referral placed to [facility]. Referral Priority Routine Medications Medication SIG (Take, Route, Frequency, Duration) Notes Start Date End Date Status Jardiance 10 MG 1 tablet Orally Once a day for 30 days Active Folic Acid 1 MG TAKE 1 TABLET BY JULIAN EVERY DAY for 90 Active Nicotine 21 MG/24HR 1 patch to skin Transdermal Once a day Unknown Escitalopram Oxalate 20 MG 1 tablet Oral ly Once a day for 90 days Active Atorvastatin Calcium 80 MG 1 tablet Oral ly Once a day for 30 days Active Triamcinolone Acetonide 0.1 % 1 application Externally twice a day for 30 days As needed RASH ON LEGS 03/20/2024 Active Carvedilol 3.125 MG 1 tablet with food Orally Twice a day for 30 days Active Furosemide 20 MG 1 tablet Orally Once a day for 30 days Unknown Brilinta 90 MG 1 tablet Orally Twic e a day for 30 days Unknown Thiamine HCl 100 MG 1 tablet Orally Once a day Unknown Multivitamin - 1 tablet Orally Once a day Unknown Spironolactone 25 MG 1 tablet Orally ONC E A DAY for 30 days Unknown Entresto 24-26 MG TAKE 1 TABLET BY JULIAN TWICE DAILY for 30 days Active Aspirin 81 81 MG 1 tablet Orally Once a day for 30 days Unknown Omeprazole 40 MG 1 capsule 30 minutes before morning meal Orally Once a day for 30 day(s) 11/18/2023 Unknown Social History Tobacco Use: Social History Observation Description Date Details (start date - stop date) Current some da y smoker NA - NA Sex Assigned At : Social History Observation Description Sex Assigned At Male Tobacco Control (Standard) Question Answer Notes Tobacco use: Current some day smoker Additional Findings: Tobacco user Light cigarett e smoker (1-9 cigs/day) Problems Problem Type SNOMED Code ICD Code Onset Dates Problem Status W/U Status Risk Notes Problem Tobacco user (800736079) Nicotine dependence, unspecified, uncomplicated (F17.200) Active confirmed Problem Generalized anxiety disorder (11273533) Generalized anxiety disorder (F41.1) Active confirmed Problem Hypertension (28186799) Hypertension (I10) 2 Active confirmed Problem Coronary artery disease (59323804) Coronary artery disease (I25.10) 2 Active confirmed Problem Sciatica (63083702) Sciatica (M54.30) 4 Active confirmed Problem Congestive heart failure (88124546) Congestive heart failure (I50.9) 2 Active confirmed Problem Alcohol use disorder (9327243449) Alcohol use disorder (F10.99) Active confirmed Problem Obesity (526488703) Obesity (BMI 30-39.9) (E66.9) Active confirmed Problem Sleep disturbance (62774043) Sleep disturbance, unspecified (G47.9) Active confirmed Problem Stented coronary artery (221060956) Stented coronary artery (Z95.5) 4 Active confirmed Problem Tobacco use (639317691) Tobacco use disorder (F17.200) Active confirmed Problem Chronic systolic heart failure (185238271) Chronic systolic congestive heart failure (I50.22) 4 Active confirmed Vital Signs Heart Rate 75 /min 02/24/2024 Respiratory Rate 16 /min 03/20/2024 Blood pressure diastolic 78 mm Hg 03/20/2024 Oximetry 98 % 03/20/2024 Height 70.00 in 03/20/2024 Blood pressure systolic 130 mm Hg 03/20/2024 Weight 228.00 lbs 03/20/2024 BMI 32.71 kg/m2 03/20/2024 Encounters Encounter Location Date Provider Diagnosis [address] [place] [address] 03/04/2024 Bebeto Manriquez Chronic systolic congestive heart failure I50.22 Counts Include [address] [facility] [place] [address] 11/06/2023 Pete Aquino Routine physical examination Z00.00 ; Obesity (BMI 30-39.9) E66.9 and Tobacco use disorder F17.200 Counts Include [address] [facility] [place] [address] 11/06/2023 Yoli Skaggs Counts Include [address] [facility] [place] [address] 11/08/2023 Bebeto Manriquez Hypertension I10 ; Congestive heart failure I50.9 ; Coronary artery disease I25.10 and Alcohol use disorder F10.99 Counts Include [address] [facility] [place] [address] 11/12/2023 Ivon Castro Generalized anxiety disorder F41.1 and Alcohol use disorder F10.99 Counts Include [address] [place] [address] 12/06/2023 Bebeto Epps M54.30 ; Chronic systolic congestive heart failure I50.22 ; Coronary artery disease I25.10 ; Hypertension I10 ; Stented coronary artery Z95.5 and Nicotine dependence, unspecified, uncomplicated F17.[address] [place] [address] 12/18/2023 Liliana Haney Generalized anxiety disorder F41.[address] [place] [address] 02/24/2024 Bebeto Epps M54.30 ; Chronic systolic congestive heart failure I50.22 ; Coronary artery disease I25.10 ; Alcohol use disorder F10.99 and Hypertension I10 Counts Include [address] [facility] [address] [place] [address] 03/20/2024 Bebeto Manriquez Hyperkalemia E87.5 ; Insect bites, initial encounter W57.XXXA ; Chronic systolic congestive heart failure I50.22 ; Hypertension I10 ; Coronary artery disease I25.10 ; Alcohol use disorder F10.99 ; Stented coronary artery Z95.5 and Sciatica M54.[address] [place] [address] 04/08/2024 Ivon Castro Generalized anxiety disorder F41.[address] [place] [address] 08/06/2024 Ivon Castro Generalized anxiety disorder F41.1 Counts Include [address] [facility] [place] [address] 11/13/2023 Bebeto Manriquez Counts Include [address] [facility] [place] [place] [address] 11/14/2023 Ivon Castro Counts Include [address] [facility] [place] [place] [address] 11/18/2023 Bebeto Manriquez Counts Include [address] [facility] [place] [address] 11/25/2023 Ivon Castro Generalized anxiety disorder F41.[address] [place] [address] 12/09/2023 Bebeto Manriquez Hypertension I10 [address] [place] [address] 12/25/2023 Bebeto Manriquez Congestive heart failure I50.9 and Hypertension I10 [address] [place] [address] 01/09/2024 Bebeto Manriquez Congestive heart failure I50.[address] [place] [address] 01/16/2024 Bebeto Manriquez [facility] [address] [address] 01/29/2024 Bebeto Manriquez [address] [address] 02/10/2024 Bebeto Manriquez Hypertension I10 [address] [address] 02/19/2024 Bebeto Manriquez [address] [address] 02/26/2024 Bebeto Manriquez Chronic systolic congestive heart failure I50.[address] [address] 03/31/2024 Bebeto Manriquez [address] [address] 07/30/2024 Ivon Castro Generalized anxiety disorder F41.1 Assessments Encounter Date Diagnosis (ICD Code) Assessment Notes Treatment Notes Treatment Clinical Notes Section Notes 02/26/2024 Chronic systolic congestive heart failure (ICD-10 - I50.22) 03/04/2024 Chronic systolic congestive heart failure (ICD-10 - I50.22) 03/20/2024 Hyperkalemia (ICD-10 - E87.5) 02/24/2024 Chronic systolic congestive heart failure (ICD-10 - I50.22) RESUME SPIRONOLACTONE AND USE LASIX PRN EDEMA OR INCREASED DYSPNEA. 03/20/2024 Insect bites, initial encounter (ICD-10 - W57.XXXA) 12/25/2023 Congestive heart failure (ICD-10 - I50.9) 01/09/2024 Congestive heart failure (ICD-10 - I50.9) 02/10/2024 Hypertension (ICD-10 - I10) 12/06/2023 Sciatica (ICD-10 - M54.30) 02/24/2024 Sciatica (ICD-10 - M54.30) SUSPECT LUMBAR SPINAL STENOSIS. WILL NEED PA FOR MRI AT [facility]. 11/06/2023 Routine physical examination (ICD-10 - Z00.00) Continue detox protocol. Encouraged regular f/u with PCP for recommended screenings and physicals. Spoke with [facility] pharmacist who state client's Entresto prescription will be transferred from [email or web address]. 11/06/2023 Obesity (BMI 30-39.9) (ICD-10 - E66.9) 11/08/2023 Hypertension (ICD-10 - I10) 11/12/2023 Generalized anxiety disorder (ICD-10 - F41.1) 11/12/2023 Alcohol use disorder (ICD-10 - F10.99) Continue groups 11/25/2023 Generalized anxiety disorder (ICD-10 - F41.1) 11/08/2023 Congestive heart failure (ICD-10 - I50.9) 12/06/2023 Chronic systolic congestive heart failure (ICD-10 - I50.22) 12/09/2023 Hypertension (ICD-10 - I10) 12/18/2023 Generalized anxiety disorder (ICD-10 - F41.1) Add lexapro to help with depressive symptoms. Continue buspar at the current dose. He had been on buspar and tolerated it well, just hadn't been on it long enough, about a month. States he was drinking at the same time. Next appointment scheduled for 3 months, and he agreed to call sooner if medication ineffective or if there are side effects that are problematic. May self-administer medications or be administered own oral medications per [facility] protocols. Provided informed consent with understanding of side effects, adverse effects, risks and benefits as well as alternative treatments as previously discussed and with the above recommended medications & other aspects of the treatment program. Agrees to return sooner if symptoms worsen or suicidal or homicidal ideations occur. 04/08/2024 Generalized anxiety disorder (ICD-10 - F41.1) Discussed r/b/se. Increasing for anxiety as client reports wanting to work on taking one medication. Client with trouble sleeping. Sister is ENT in another state and reports he likely has sleep apnea. Trouble with falling and staying asleep, daytime fatigue. Sending referral for sleep medicine. 07/30/2024 Generalized anxiety disorder (ICD-10 - F41.1) 08/06/2024 Generalized anxiety disorder (ICD-10 - F41.1) Discussed r/b/se. [place] agreement to continue current regimen. 03/20/2024 Chronic systolic congestive heart failure (ICD-10 - I50.22) 12/25/2023 Hypertension (ICD-10 - I10) 12/06/2023 Coronary artery disease (ICD-10 - I25.10) 11/08/2023 Coronary artery disease (ICD-10 - I25.10) 11/06/2023 Tobacco use disorder (ICD-10 - F17.200) 02/24/2024 Coronary artery disease (ICD-10 - I25.10) 03/20/2024 Hypertension (ICD-10 - I10) 02/24/2024 Alcohol use disorder (ICD-10 - F10.99) 12/06/2023 Hypertension (ICD-10 - I10) 11/08/2023 Alcohol use disorder (ICD-10 - F10.99) 12/06/2023 Stented coronary artery (ICD-10 - Z95.5) 02/24/2024 Hypertension (ICD-10 - I10) 03/20/2024 Coronary artery disease (ICD-10 - I25.10) 12/06/2023 Nicotine dependence, unspecified, uncomplicated (ICD-10 - F17.200) 03/20/2024 Alcohol use disorder (ICD-10 - F10.99) 03/20/2024 Stented coronary artery (ICD-10 - Z95.5) 03/20/2024 Sciatica (ICD-10 - M54.30) NEEDS MRI TO EVALUATE FOR DISC DISEASE VS SPINAL STENOSIS VS BOTH 11/06/2023 Other Provided case management services to address social determinants of health needs and reduce barriers to health care services. 11/12/2023 Other Reasons, potential benefits, potential risks, interactions and side effects of all medications were discussed. The Patient/Guardian asked appropriate questions, appeared to understand the answers, and decided to accept the treatment and continue being followed. Alternatives and expected course without treatment were reviewed. The Patient/Guardian is aware of the need to contact the office or return for an earlier appointment if any problems or concerns arise. May also contact the 24-hour crisis hotline ([facility]), refer to the closest emergency room or call 911 if new symptoms arise of existing symptoms worsen. The Patient/Guardian is aware that this would apply to symptoms like: suicidal ideation, homicidal ideation, high risk behaviors, manic symptoms, psychotic symptoms, physical symptoms, or any other symptoms that may be dangerous to self or others. Greater than 50% of time spent on coordination and counseling where psychopharmacology as well as psychotherapeutic interventions were discussed along with review of treatments in the past. Education provided concerning need for adequate hydration. Patient/Guardian verbalized understanding of education, treatment plan and follow up. 04/08/2024 Other Reasons, potential benefits, potential risks, interactions and side effects of all medications were discussed. The Patient/Guardian asked appropriate questions, appeared to understand the answers, and decided to accept the treatment and continue being followed. Alternatives and expected course without treatment were reviewed. The Patient/Guardian is aware of the need to contact the office or return for an earlier appointment if any problems or concerns arise. May also contact the 24-hour crisis hotline ([facility]), refer to the closest emergency room or call 911 if new symptoms arise of existing symptoms worsen. The Patient/Guardian is aware that this would apply to symptoms like: suicidal ideation, homicidal ideation, high risk behaviors, manic symptoms, psychotic symptoms, physical symptoms, or any other symptoms that may be dangerous to self or others. Greater than 50% of time spent on coordination and counseling where psychopharmacology as well as psychotherapeutic interventions were discussed along with review of treatments in the past. Education provided concerning need for adequate hydration. Patient/Guardian verbalized understanding of education, treatment plan and follow up. This session was completed telephonically with client/parental/guar austen consent: Unable to determine movement status, assess appearance, affect, AIMS, or vital signs. 08/06/2024 Other Meds sent to [place] as client reports that is closer to his job rather than his home. Reasons, potential benefits, potential risks, interactions and side effects of all medications were discussed. The Patient/Guardian asked appropriate questions, appeared to understand the answers, and decided to accept the treatment and continue being followed. Alternatives and expected course without treatment were reviewed. The Patient/Guardian is aware of the need to contact the office or return for an earlier appointment if any problems or concerns arise. May also contact the 24-hour crisis hotline ([facility]), refer to the closest emergency room or call 911 if new symptoms arise of existing symptoms worsen. The Patient/Guardian is aware that this would apply to symptoms like: suicidal ideation, homicidal ideation, high risk behaviors, manic symptoms, psychotic symptoms, physical symptoms, or any other symptoms that may be dangerous to self or others. Greater than 50% of time spent on coordination and counseling where psychopharmacology as well as psychotherapeutic interventions were discussed along with review of treatments in the past. Education provided concerning need for adequate hydration. Patient/Guardian verbalized understanding of education, treatment plan and follow up. This session was completed telephonically with client/parental/guar austen consent: Unable to determine movement status, assess appearance, affect, AIMS, or vital signs. Plan Of Treatment Future Test Test Name Order Date MRI : Lumbar without contrast 02/24/2024 Insurance Providers Payer Name Payer Address Payer Phone Subscriber Number Group Number Insured Name Patient Relationship to Insured Coverage Start Date Coverage End Date [facility] [address] [place] [address] [id number] Ramón Mccullough Self - patient is the insured 4 Medical (General) History Surgical History Surgery Date(Month/Year) coronary stent x2 2021 Hospitalization History Reason Date(Month/Year) CHF x2 [facility] and [facility]
--- OUTSIDE RECORDS SUMMARY | 2024-10-25 14:56 | XMS_ITS ---
Author Organization [facility] Address [address] [facility] [address] [place] [address] Care Team Providers Care Solution Spec Name Role Phone LEXA PATEL MD Primary Care Provider Unavailab eze ARDON MD [facility], NADIA Marcelo [phone] REASON FOR VISIT 2 week f/up Medications Medication SIG (Take, Route, Frequency, Duration) Notes Start Date End Date Status Furosemide 20 MG 1 tablet Orally Once a day Active Brilinta 90 MG 1 tablet Orally Twic e a day Active Lexapro 20 MG 1 tablet Orally Once a day Active Aspirin 81 MG 1 capsule Orally Onc e a day Active Omeprazole 40 MG 1 capsule 1/2 to 1 h our before morning meal Orally Once a day Active Multivitamin - 1 tablet Orally Once a day Active Spironolactone 25 MG 1 tablet Orally Active Jardiance 10 MG 1 tablet Orally Once a day Active Chantix 1 MG as directed Orally Active Carvedilol 3.125 MG 1 tablet with food O rally Twice a day Active Entresto 24-26 MG 1 tablet Orally Twic e a day Active Folic Acid 1 MG 1 tablet Orally Once a day Active Atorvastatin Calcium 80 MG 1 tablet Oral ly Once a day Active Encounters Encounter Location Date Provider Diagnosis [facility] [address] [facility] [address] [place] [address] 04/23/2024 NADIA ARDON MD [facility] Atherosclerotic heart disease of [place] coronary artery with other forms of angina pectoris I25.118 ; HFrEF (heart failure with reduced ejection fraction) I50.20 ; Paroxysmal atrial fibrillation I48.0 ; Primary hypertension I10 and Hyperlipidemia, unspecified hyperlipidemia type E78.5 Assessments Encounter Date Diagnosis (ICD Code) Assessment Notes Treatment Notes Treatment Clinical Notes Section Notes 04/23/2024 Atherosclerotic heart disease of [place] coronary artery with other forms of angina pectoris (ICD-10 - I25.118) Denies symptoms concerning for angina, appears clinically stable. Continue Brilinta 90mg 1 tablet bid Continue aspirin 81mg 1 capsule qd 04/23/2024 HFrEF (heart failure with reduced ejection fraction) (ICD-10 - I50.20) Will order echocardiogram to assess LVEF after echocardiogram showed cardiomyopathy with LVEF 10-15% in Jul 2023 Continue entresto 24-26mg 1 tablet bid Contiue Jardiance 10mg 1 tablet qd Continue spironolactone 25mg 1 tablet qd Continue carvedilol 3.125mg 1 tablet bid Continue furosemide 20mg once daily 04/23/2024 Paroxysmal atrial fibrillation (ICD-10 - I48.0) 04/23/2024 Primary hypertension (ICD-10 - I10) BP elevated in office today 148/97 On medical therapy for HFrEF as described above, will continue to monitor BP at next visit 04/23/2024 Hyperlipidemia, unspecified hyperlipidemia type (ICD-10 - E78.5) Continue atorvastatin 80mg qd Plan Of Treatment Treatment Notes Assessment Notes Atherosclerotic heart diseas e of bent[place] coronary artery with other forms of angina pectoris Denies symptoms concerning for angina, appears clinically stable. Continue Brilinta 90mg 1 tablet bid Continue aspirin 81mg 1 capsule qd HFrEF (heart failure with re duced ejection fraction) Will order echocardiogram to assess LVEF after echocardiogram showed cardiomyopathy with LVEF 10-15% in Jul 2023 Continue entresto 24-26mg 1 tablet bid Contiue Jardiance 10mg 1 tablet qd Continue spironolactone 25mg 1 tablet qd Continue carvedilol 3.125mg 1 tablet bid Continue furosemide 20mg once daily Primary hypertension BP elevated in office today 148/97 On medical therapy for HFrEF as described above, will continue to monitor BP at next visit Hyperlipidemia, unspecified hyperlipidemia type Continue atorvastatin 80mg qd Progress Notes * KELLY CARRASCO: [birth year] (44 yo M)Acc No.[id number]:04/23/2024 Progress Notes Patient: Delgado KELLY THOMPSON Provider: Lissy Ardon MD :1980 A ge:44 Y S ex:Male Date:04/23/2024 [id number] Pcp:LEXA PATEL MD Subjective: * Chief Complaints: * 1 . 2 week f/up. * HPI: S creening: Patient is a 44 year old male with past medical history of CAD, CHF, HTN, presenting after being lost to follow-up since 07/15/2023. On 07/05/2023 patient was admitted to [facility] for exertional dyspnea a nd was diagnosed with m etabolic acidosis, hypokalemia, hypomagnasemia, pneumonia, echocardiogram showed cardiomyopathy with LVEF of 10-15%, patient underwent LHC. PCI was performed with BACILIO to r ight PLV and LCX (100% occluded). Cipriano evaristoelva was fine following PCI and was discharged shortly after with a lifevest for LVEF 10-15%. He followed up with our practice on 07/15/2023 who ordered a follow- up e chocardiogram to be performed but patient was lost to follow-up and did not have echo performed. Today patient reports he h ad trouble getting insurance to cover lifevest so patient did not wear lifevest and says he had no incidences of syncope since last visit. Patient did not have follow-up echo d one. We W ill order repeat echo to assess LVEF. In the meantime we will proceed with medical management. Patient says he was recently in rehab for after trying to drink himself to a nd had some suicidal ideation. Patient says he has family nearby and has been doing better sine moving back to [place]. Cipriano stevens says he is 6 months sober. * Medical History: C AD: s/p BACILIO to LCX November 2021. s/p BACILIO to right PLV and LCX Jul 2023 at [facility] CHF (HFrEF 10-15%) Jul 2023, Paroxysmal Atrial fibrillation, Hypertension, Hyperlipidemia, Alcoholic Steatohepatitis, Macrocytic Anemia. * Hospitalization/Major Diagno stic Procedure: Cipriano rivera 07/05/2023. * Family History: F ather: alive, diagnosed with Essential hypertension, Heart disease. M other: alive. P hectorl Grand Father: unknown. P aternal Grand Mother: unknown. S ister: unknown. 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 * Social History: 1 . Works at [employer] 2. Single, No children 3. Current smoker, down to 3 cigarrets per day, down from 1 PPD 4. ETOH - quit drinking 3 months ago 5.Denies history of recreational drug use. * Medications: T aking Multivitamin - Tablet 1 tablet Orally Once a day , Taking Brilinta 90 MG Tablet 1 tablet Orally Twice a day , Taking Furosemide 20 MG Tablet 1 tablet Orally Once a day , Taking Lexapro 20 MG Tablet 1 tablet Orally Once a day , Taking Omeprazole 40 MG Capsule Delayed Release 1 capsule 1/2 to 1 hour before morning meal Orally Once a day , Taking Aspirin 81 MG Capsule 1 capsule Orally Once a day , Taking Folic Acid 1 MG Tablet 1 tablet Orally Once a day , Taking Entresto 24-26 MG Tablet 1 tablet Orally Twice a day , Taking Atorvastatin Calcium 80 MG Tablet 1 tablet Orally Once a day , Taking Carvedilol 3.125 MG Tablet 1 tablet with food Orally Twice a day , Taking Jardiance 10 MG Tablet 1 tablet Orally Once a day , Taking Spironolactone 25 MG Tablet 1 tablet Orally , Taking Chantix 1 MG Tablet as directed Orally Objective: * Vitals: * Examination: G eneral Examination: General appearance: a lert, pleasant, well-nourished and in no acute distress. Head: n ormocephalic, atraumatic. Neck / thyroid: n o jugular venous distention. Heart: r egular rate and rhythm without murmurs, gallops, clicks or rubs. Lungs: c lear to auscultation bilaterally, with good air movement and no rales, rhonchi or wheezes. Extremities: n ormal extremity with no clubbing, cyanosis or edema. E KG: Heart rate: n ormal rate. Heart rhythm: n ormal sinus rhythm. ST segment: N o acute ischemic changes. ? Assessment: * Assessment: 1. H FrEF (heart failure with reduced ejection fraction) - I50.20 (Primary) 2 .?Atherosclerotic heart disease of [place] coronary artery with other forms of angina pectoris - I25.118 3 . P aroxysmal atrial fibrillation - I48.0 4 . P rimary hypertension - I10 5 . H yperlipidemia, unspecified hyperlipidemia type - E78.5 Plan: * Treatment: 2. 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 Continue Brilinta 90mg 1 tablet bid Continue aspirin 81mg 1 capsule qd 3. P rimary hypertension Notes: BP elevated in office today 148/97 On medical therapy for HFrEF as described above, will continue to monitor BP at next visit ? 4. H yperlipidemia, unspecified hyperlipidemia type Notes: Continue atorvastatin 80mg qd * Billing Information: * Visit Code: * Procedure Codes: * Electronic signature of NADIA ARDON MD, FACC, MD on 10/25/2024 at 02:55 PM CDT Sign off status: Pending * Provider: Lissy Ardon MD Date: Generated for Fernando rojas/Corey/Luann on: 0 10/25/2024 02:55 PM CDT History and Physical Notes * HPI (History of Present Illness) Category Sub-Category Detail Notes Category Not es Screening Patient is a 44 year old male with past medical history of CAD, CHF, HTN, presenting after being lost to follow-up since 07/15/2023. On 07/05/2023 patient was admitted to [facility] for exertional dyspnea and was diagnosed with metabolic acidosis, hypokalemia, hypomagnasemia, pneumonia, echocardiogram showed cardiomyopathy with LVEF of 10-15%, patient underwent LHC. PCI was performed with BACILIO to right PLV and LCX (100% occluded). Patient was fine following PCI and was discharged shortly after with a lifevest for LVEF 10-15%. He followed up with our practice on 07/15/2023 who ordered a follow-up echocardiogram to be performed but patient was lost to follow-up and did not have echo performed. Today patient reports he had trouble getting insurance to cover lifevest so patient did not wear lifevest and says he had no incidences of syncope since last visit. Patient did not have follow-up echo done. We Will order repeat echo to assess LVEF. In the meantime we will proceed with medical management. Patient says he was recently in rehab for after trying to drink himself to and had some suicidal ideation. Patient says he has family nearby and has been doing better sine moving back to [place]. Patient says he is 6 months sober. Examination Category Sub-Category Detail Notes Category Not es General Examination General appearance: alert, p leasant, well-nourished and in no acute distress Head: normocephalic, atrau matic Neck / thyroid: no jugular venous di stention Heart: regular rate and rhy thm without murmurs, gallops, clicks or rubs Lungs: clear to auscultatio n bilaterally, with good air movement and no rales, rhonchi or wheezes Extremities: normal extremity wit h no clubbing, cyanosis or edema EKG Heart rate: normal rate Heart rhythm: normal sinus rhythm ST segment: No acute ischemic ch anges
--- OUTSIDE RECORDS SUMMARY | 2024-10-25 14:56 | XMS_ITS | Continuity of Care Document ---
Author Organization [facility] Address [address] [place] [address] Phone Care Team Providers Care Portable Irrigation Operator Name Role Phone Unavailable Unavailable Unavailable Procedures Procedure Date Offic/outpt E&m [facility] 20 09 Advance Directives Directive Yes / No Effective Date File Name No Information Encounters Encounter Description Practice Location Reason(s) For Visit Diagnoses Date Provider Providers Copied on Encounter [facility], [address], [place], [place], [id number], [place] tel:[phone] [facility] No Information 3 No Information Offic/outpt E&m [facility], [address], [place], [place], [id number], [place] tel:[phone] [facility] No Information 9 No Information Family History Family Member Type Diagnosis Age At Onset No Information Payers Payer name Insurance type Covered republican ID Authoriza tion(s) No Information Social History Type Description Quantity Date Captured Comments Sex Male Smoking Status No Information Chief Complaint And Reason For Visit No Information Reason For Referral Reason For Referral No Information History Of Present Illness Encounter Date Complaint History Of Prese nt Illness No Information Functional Status Date Functional Assessmen t No Information Instructions Date Instruction Additional Infor mation No Information Assessments Type Assessment Date No Information Patient Care Teams Name Effective Dates (start - stop) Status Members No Information
--- OUTSIDE RECORDS SUMMARY | 2024-10-25 14:56 | XMS_ITS ---
Author Organization [facility] Address [address] [place] [address] Care Team Providers Care Ramp Supervisor Name Role Phone LEXA PATEL MD Primary Care Provider Unavailab eze [facility], NAD[facility] Unavailable [phone] REASON FOR VISIT ECHO Encounters Encounter Location Date Provider Diagnosis [facility] Out[facility] [address] [place], [place] [id number] 04/24/2024 NADIA ARDON MD [facility] Plan Of Treatment No Information Progress Notes * KELLY CARRASCO: [birth year] (44 yo M)Acc No.[id number]:04/24/2024 LABS Patient: Delgado THOMPSONKELLY Provider: Lissy Ardon MD :1980 A ge:44 Y S ex:Male Date:04/24/2024 [facility] Pcp:LEXA PATEL MD Subjective: * Chief Complaints: * 1 . ECHO. * Medical History: Objective: * Vitals: Assessment: Plan: * Treatment: * Billing Information: * Visit Code: * Procedure Codes: * Electronic signature of NADIA ARDON MD, FACC , on 10/25/2024 at 02:56 PM CDT Sign off status: Pending * Provider: Lissy Ardon MD Date: Generated for Printi ng/Faxing/eTransmitting on: 0 10/25/2024 02:56 PM CDT
--- OUTSIDE RECORDS SUMMARY | 2024-10-25 14:56 | XMS_ITS | Patient Health Record ---
Author Organization [facility] Address [address] [place] [address] Care Team Providers Care Mutual Fund Manager Name Role Phone LEXA PATEL MD Primary Care Provider Unavailab eze TOVAR MD [facility], [facility] Unavailable [phone] Allergies No Known Allergies Reason For Referral No Information Medications Medication SIG (Take, Route, Frequency, Duration) Notes Start Date End Date Status Aspirin 81 MG 1 capsule Orally Onc e a day Active Omeprazole 40 MG 1 capsule 1/2 to 1 h our before morning meal Orally Once a day Active Entresto 24-26 MG 1 tablet Orally Twic e a day Active Folic Acid 1 MG 1 tablet Orally Once a day Active Carvedilol 3.125 MG 1 tablet with food O rally Twice a day Active Atorvastatin Calcium 80 MG 1 tablet Oral ly Once a day Active Multivitamin - 1 tablet Orally Once a day Active Spironolactone 25 MG 1 tablet Orally Active Jardiance 10 MG 1 tablet Orally Once a day Active Furosemide 20 MG 1 tablet Orally Once a day Active Brilinta 90 MG 1 tablet Orally Twic e a day Active Chantix 1 MG as directed Orally Active Lexapro 20 MG 1 tablet Orally Once a day Active Social History Tobacco Use: Social History Observation Description Date Details (start date - stop date) Never Smoker NA - NA Tobacco Control (Standard) Question Answer Notes Tobacco use: Nonsmoker Section Notes: 1. Works at [employer] 2. Single, No children 3. Current smoker, down to 3 cigarrets per day, down from 1 PPD 4. ETOH - quit drinking 3 months ago 5.Denies history of recreational drug use. 1. Works at [employer] 2. Single, No children 3. Current smoker, down to 3 cigarrets per day, down from 1 PPD 4. ETOH - quit drinking 3 months ago 5.Denies history of recreational drug use. Problems Problem Type SNOMED Code ICD Code Onset Dates Problem Status W/U Status Risk Notes Problem 13055109 Hypertensive hea rt disease with heart failure (I11.0) Active confirmed Problem 751910998 Atherosclerotic heart disease of [place] coronary artery with other forms of angina pectoris (I25.118) Active confirmed Problem 455095412 Dilated cardiomyopathy (I42.0) Active confirmed Problem 879907173 Paroxysmal atria l fibrillation (I48.0) Active confirmed Problem 03617758 Hyperlipidemia, unspecified hyperlipidemia type (E78.5) Active confirmed Problem 11015110 Heart failure, unspecified HF chronicity, unspecified heart failure type (I50.9) Active confirmed Problem 56489161 Atrial fibrillation, unspecified type (I48.91) Active confirmed Problem 66155562 Primary hypertension (I10) Active confirmed Vital Signs Heart Rate 74 /min 04/08/2024 Respiratory Rate 16 /min 04/08/2024 Blood pressure diastolic 97 mm Hg 04/08/2024 Oximetry 97 % 04/08/2024 Weight-kg 103.42 kg 04/08/2024 Height 70 in 04/08/2024 Blood pressure systolic 148 mm Hg 04/08/2024 Weight 228 lbs 04/08/2024 BMI 32.71 kg/m2 04/08/2024 Encounters Encounter Location Date Provider Diagnosis [facility] [address] [place], [place] [id number] 04/24/2024 NADIA TOVAR MD [facility] [address] [place] [address] 04/08/2024 NADIA TOVAR MD [facility] Atherosclerotic heart disease of [place] coronary artery with other forms of angina pectoris I25.118 ; HFrEF (heart failure with reduced ejection fraction) I50.20 ; Paroxysmal atrial fibrillation I48.0 ; Primary hypertension I10 and Hyperlipidemia, unspecified hyperlipidemia type E78.5 Assessments Encounter Date Diagnosis (ICD Code) Assessment Notes Treatment Notes Treatment Clinical Notes Section Notes 04/08/2024 HFrEF (heart failure with reduced ejection fraction) (ICD-10 - I50.20) Will order echocardiogram to assess LVEF after echocardiogram showed cardiomyopathy with LVEF 1015% in Jul 2023 Continue entresto 24-26mg 1 tablet bid Contiue Jardiance 10mg 1 tablet qd Continue spironolactone 25mg 1 tablet qd Continue carvedilol 3.125mg 1 tablet bid Continue furosemide 20mg once daily 04/08/2024 Atherosclerotic heart disease of [place] coronary artery with other forms of angina pectoris (ICD-10 - I25.118) Denies symptoms concerning for angina, appears clinically stable. Continue Brilinta 90mg 1 tablet bid Continue aspirin 81mg 1 capsule qd 04/08/2024 Paroxysmal atrial fibrillation (ICD-10 - I48.0) 04/08/2024 Primary hypertension (ICD-10 - I10) BP elevated in office today 148/97 On medical therapy for HFrEF as described above, will continue to monitor BP at next visit 04/08/2024 Hyperlipidemia, unspecified hyperlipidemia type (ICD-10 - E78.5) Continue atorvastatin 80mg qd 04/08/2024 Other Will order echocardiogram to assess LVEF to determine if patient is eligible for ICD placement if EF <35%. Continue entresto 24-26mg 1 tablet bid Contiue Jardiance 10mg 1 tablet qd Continue spironolactone 25mg 1 tablet qd Continue carveilol 3.125mg 1 tablet bid Plan Of Treatment No Information Insurance Providers Payer Name Payer Address Payer Phone Subscriber Number Group Number Insured Name Patient Relationship to Insured Coverage Start Date Coverage End Date [facility] [address] [place] [address] [id number] KELLY CARRASCO Self - patient is the insured Medical (General) History Medical History History ICD Code CAD: s/p BACILIO to LCX November. s/p BACILIO to right PLV and LCX Jul 2023 at [facility]. CHF (HFrEF 10-15%) Jul 2023 Paroxysmal Atrial fibrillation Hypertension Hyperlipidemia Alcoholic Steatohepatitis Macrocytic Anemia Hospitalization History Reason Date(Month/Year) Pneumonia 07/05/2023
--- OUTSIDE RECORDS SUMMARY | 2024-10-25 14:57 | XMS_ITS ---
Author Organization [facility] Address [address] [place] [address] Care Team Providers Care Control Cabinet Assembler Name Role Phone LEXA PATEL MD Primary Care Provider Unavailab Janessa INTERIANO [facility] Unavailable [phone] Allergies No Known Allergies REASON FOR VISIT f/up Medications Medication SIG (Take, Route, Frequency, Duration) Notes Start Date End Date Status Chantix 1 MG as directed Orally Active Spironolactone 25 MG 1 tablet Orally Active Jardiance 10 MG 1 tablet Orally Once a day Active Carvedilol 3.125 MG 1 tablet with food O rally Twice a day Active Atorvastatin Calcium 80 MG 1 tablet Oral ly Once a day Active Entresto 24-26 MG 1 tablet Orally Twic e a day Active Folic Acid 1 MG 1 tablet Orally Once a day Active Aspirin 81 MG 1 capsule Orally Onc e a day Active Omeprazole 40 MG 1 capsule 1/2 to 1 h our before morning meal Orally Once a day Active Lexapro 20 MG 1 tablet Orally Once a day Active Brilinta 90 MG 1 tablet Orally Twic e a day Active Multivitamin - 1 tablet Orally Once a day Active Furosemide 20 MG 1 tablet Orally Once a day Active Social History Tobacco Use: Social History Observation Description Date Details (start date - stop date) Never Smoker NA - NA Tobacco Control (Standard) Question Answer Notes Tobacco use: Nonsmoker Section Notes: 1. Works at [employer] 2. Single, No children 3. Current smoker, down to 3 cigarrets per day, down from 1 PPD 4. ETOH - quit drinking 3 months ago 5.Denies history of recreational drug use. Problems Problem Type SNOMED Code ICD Code Onset Dates Problem Status W/U Status Risk Notes Problem [id number] Primary hypertension (I10) Active confirmed Vital Signs Blood pressure systolic 148 mm Hg 04/08/20 24 Blood pressure diastolic 97 mm Hg 024 Heart Rate 74 /min 04/08/2024 Respiratory Rate 16 /min 04/08/2024 Height 70 in 04/08/2024 Weight 228 lbs 04/08/2024 BMI 32.71 kg/m2 04/08/2024 Oximetry 97 % 04/08/2024 Weight-kg 103.42 kg 04/08/2024 Encounters Encounter Location Date Provider Diagnosis [facility] [address] [place] [address] 04/08/2024 NADIA ARDON MD [facility] 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 Continue Brilinta 90mg 1 tablet bid Continue aspirin 81mg 1 capsule qd 04/08/2024 HFrEF (heart failure with reduced ejection fraction) (ICD-10 - I50.20) Will order echocardiogram to assess LVEF after echocardiogram showed cardiomyopathy with LVEF 10-15% in Jul 2023 Continue entresto 24-26mg 1 tablet bid Contiue Jardiance 10mg 1 tablet qd Continue spironolactone 25mg 1 tablet qd Continue carvedilol 3.125mg 1 tablet bid Continue furosemide 20mg once daily 04/08/2024 Paroxysmal atrial fibrillation (ICD-10 - I48.0) [...] 3.125mg 1 tablet bid Plan Of Treatment Treatment Notes Assessment Notes Atherosclerotic heart diseas e of menominee coronary artery with other forms of angina [...] unspecified hyperlipidemia type Continue atorvastatin 80mg qd Other Will order echocardiogram to assess LVEF to determine if patient is eligible for ICD placement if EF <35%. Continue entresto 24-26mg 1 tablet bid Contiue Jardiance 10mg 1 tablet qd Continue spironolactone 25mg 1 tablet qd Continue carveilol 3.125mg 1 tablet bid Next Appt Details Follow Up: Lipid panel, CMP, Echo, F/U 2 weeks, Reason: Progress Notes * KELLY CARRASCO: [birth year] (44 yo M)Acc No.[id number]:04/08/2024 Progress Notes Patient: Delgado THOMPSON KELLY Smith Provider: Lissy Ardon MD :1980 A ge:44 Y S ex:Male Date:04/08/2024 Address:[facility] [address] Pcp:LEXA PATEL MD Subjective: * Chief Complaints: * F /up * HPI: S creening: Patient is a 44 year old male with past medical history of CAD, CHF, HTN, presenting after being lost to follow-up since 07/15/2023. On 07/05/2023 patient was admitted to [facility] for exertional dyspnea a nd was diagnosed with m etabolic acidosis, hypokalemia, hypomagnasemia, pneumonia, echocardiogram showed cardiomyopathy with LVEF of 10-15%, patient underwent LHC. PCI was performed with BACILIO to r ight PLV and LCX (100% occluded). Cipriano stevens was fine following PCI and was discharged [...] been doing better sine moving back to [place]. Cipriano stevens says he is 6 months sober. Will order Lipid Panel, CMP, Follow-up 2 weeks. * Medical History: * Surgical History: * Hospitalization/Major Diagno stic Procedure: Cipriano rivera 07/05/2023 * Family History: F ather: alive, diagnosed with Essential hypertension, Heart disease. M other: alive. P aternal Grand Father: unknown. P aternal Grand Mother: unknown. S ister: unknown. M aternal Grand Mother: diagnosed with Type 2 diabetes mellitus without complication, unspecified whether chcf insulin use. * Social History: T obacco Use: T obacco Control (Standard) T obacco use: N onsmoker. 1 . Works at [employer] 2. Single, No children 3. Current smoker, down to 3 cigarrets per day, down from 1 PPD 4. ETOH - quit drinking 3 months ago 5.Denies history of recreational drug use. * Medications: T akingMultivitamin - Tablet 1 tablet Orally Once a day Brilinta 90 MG Tablet 1 tablet Orally Twice a day Furosemide 20 MG Tablet 1 tablet Orally Once a day Lexapro 20 MG Tablet 1 tablet Orally Once a day Omeprazole 40 MG Capsule Delayed Release 1 capsule 1/2 to 1 hour before morning meal Orally Once a day Aspirin 81 MG Capsule 1 capsule Orally Once a day Folic Acid 1 MG Tablet 1 tablet Orally Once a day Entresto 24- 26 MG Tablet 1 tablet Orally Twice a day Atorvastatin Calcium 80 MG Tablet 1 tablet Orally Once a day Carvedilol 3.125 MG Tablet 1 tablet with food Orally Twice a day Jardiance 10 MG Tablet 1 tablet Orally Once a day Spironolactone 25 MG Tablet 1 tablet Orally Chantix 1 MG Tablet as directed Orally Medication List reviewed and reconciled with the patientTaking Multivitamin - Tablet 1 tablet Orally Once a day Taking Brilinta 90 MG Tablet 1 tablet Orally Twice a day Taking Furosemide 20 MG Tablet 1 tablet Orally Once a day Taking Lexapro 20 MG Tablet 1 tablet Orally Once a day Taking Omeprazole 40 MG Capsule Delayed Release 1 capsule 1/2 to 1 hour before morning meal Orally Once a day Taking Aspirin 81 MG Capsule 1 capsule Orally Once a day Taking Folic Acid 1 MG Tablet 1 tablet Orally Once a day Taking Entresto 24-26 MG Tablet 1 tablet Orally Twice a day Taking Atorvastatin Calcium 80 MG Tablet 1 tablet Orally Once a day Taking Carvedilol 3.125 MG Tablet 1 tablet with food Orally Twice a day Taking Jardiance 10 MG Tablet 1 tablet Orally Once a day Taking Spironolactone 25 MG Tablet 1 tablet Orally Taking Chantix 1 MG Tablet as directed Orally Medication List reviewed and reconciled with the patient * Allergies: N .K.D.A.no[Allergies Verified] Objective: * Vitals: B P:148/97mm Hg, HR:74/min, RR:16/min, Ht: 70 in, Wt:228lbs, BMI:32.71Index, Oxygen sat %:97%, Body Surface Area: 2.26, Wt-k.42 kg. 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 P aroxysmal atrial fibrillation - I48.0 4 . P rimary hypertension - I10 5 . H yperlipidemia, unspecified hyperlipidemia type - E78.5 Plan: * Treatment: 2. A therosclerotic heart disease of menominee coronary artery with other forms of angina [...] hyperlipidemia type Notes: Continue atorvastatin 80mg qd 5. O thers Notes: Will order echocardiogram to assess LVEF to determine if patient is eligible for ICD placement if EF <35%. Continue entresto 24-26mg 1 tablet bid Contiue Jardiance 10mg 1 tablet qd Continue spironolactone 25mg 1 tablet qd Continue carveilol 3.125mg 1 tablet bid * Procedure Codes: 9 3000 -ELECTROCARDIOGRAM, COMPLETE * Preventive Medicine: Counseling: C are goal follow-up plan: A carrie Normal BMI Follow-up G iving encouragement to exercise, Lifestyle education regarding diet. Screenings: F all risk screening F all Risk Assessment: N o falls in the past year. * Follow Up: L ipid panel, CMP, Echo, F/U 2 weeks * Billing Information: * Visit Code: 86467 Office Visit, Est Pt., Level 4. * Procedure Codes: 16109 -ELECTROCARDIOGRAM, COMPLETE. * Sign off status: Completed true * Provider: Lissy Ardon MD Date: Generated for Fernando rojas/Corey/eTransmitting on: 0 10/25/2024 02:56 PM CDT History and Physical Notes * HPI (History of Present Illness) Category Sub-Category Detail Notes Category Not es Screening Patient is a 44 year old male with past medical history of CAD, CHF, HTN, presenting after being lost to follow-up since 07/15/2023. On 07/05/2023 patient was admitted to [facility] for exertional dyspnea and was diagnosed with [...] been doing better sine moving back to [place]. Patient says he is 6 months sober. Will order Lipid Panel, CMP, Follow-up 2 weeks Examination Category Sub-Category Detail Notes Category Not [...]
--- OUTSIDE RECORDS SUMMARY | 2024-10-25 14:57 | XMS_ITS | Encounter Summary ---
Author Organization [facility] Address [address] [place] [address] Care Team Providers Care Beadworker Name Role Phone Paul Woodruff MD Primary Care Provider Skyler valenzuela Encounter Details Date Type Department Care Team (Late st Contact Info) Description 03/03/2004 Outpatient Historical [facility] Primary Care - [address] [place] [address] Wes Leal MD [address] [facility] [address] [place] [address] Social History Tobacco Use Types Packs/Day Years Used Date Smoking Tobacco: Never Assessed Sex and Gender Information Value Date Recorded Sex Assigned at Not on file Legal Sex Male 4:29 AM PENCILS WASHER Gender Identity Not on file Sexual Orientation Not on file documented as of this encounter Plan of Treatment Not on file documented as of this encounter Visit Diagnoses Not on filedocumented in this encounter Care Teams Beadworker Relationship Specialty Start Date End Date Paul Woodruff MD PCP - General Internal Medicine 01/22/17 12/19/23 documented as of this encounter
--- OUTSIDE RECORDS SUMMARY | 2024-10-25 14:57 | XMS_ITS | Encounter Summary ---
Author Organization [facility] Address [address] [place] [address] Care Team Providers Care File Conversion Operator Name Role Phone Paul Woodruff MD Primary Care Provider Skyler valenzuela Encounter Details Date Type Department Care Team (Late st Contact Info) Description 12/19/1999 Outpatient Historical [facility] Primary Care - [address] [place] [address] Wu Zeng MD [address] [place] [address] Social History Tobacco Use Types Packs/Day Years Used Date Smoking Tobacco: Never Assessed Sex and Gender Information Value Date Recorded Sex Assigned at Not on file Legal Sex Male 4:29 AM PERSONAL INJURY LAW SPECIALIST Gender Identity Not on file Sexual Orientation Not on file documented as of this encounter Plan of Treatment Not on file documented as of this encounter Visit Diagnoses Not on filedocumented in this encounter Care Teams File Conversion Operator Relationship Specialty Start Date End Date Paul Woodruff MD PCP - General Internal Medicine 01/22/17 12/19/23 documented as of this encounter
--- OUTSIDE RECORDS SUMMARY | 2024-10-25 14:57 | XMS_ITS | Encounter Summary ---
Author Organization [facility] Address [address] [place] [address] Care Team Providers Care Pillar Man Name Role Phone Paul Woodruff MD Primary Care Provider Skyler valenzuela Encounter Details Date Type Department Care Team (Late st Contact Info) Description 01/16/1999 Outpatient Historical [facility] Primary Care - [address] [place] [address] Wu Zeng MD [address] [place] [address] Social History Tobacco Use Types Packs/Day Years Used Date Smoking Tobacco: Never Assessed Sex and Gender Information Value Date Recorded Sex Assigned at Not on file Legal Sex Male 4:29 AM DENTAL ASSISTANT Gender Identity Not on file Sexual Orientation Not on file documented as of this encounter Plan of Treatment Not on file documented as of this encounter Visit Diagnoses Not on filedocumented in this encounter Care Teams Pillar Man Relationship Specialty Start Date End Date Paul Woodruff MD PCP - General Internal Medicine 01/22/17 12/19/23 documented as of this encounter
--- OUTSIDE RECORDS SUMMARY | 2024-10-25 14:57 | XMS_ITS | Clinical Summary ---
Author Organization [facility] Address [address] [place] [address] Care Team Providers Care Labor Relations Supervisor Name Role Phone Unavailable Primary Care Provider Unavailabl e Allergies No known active allergies Medications escitalopram 10 mg tablet Take 10 mg by mouth daily. Active aspirin (ECOTRIN EC) 81 mg Tablet, Delayed Release (E.C.) Take 1 Tablet (81 mg) by mouth daily. 30 Tablet 5 02/26/2023 Active furosemide (LASIX) 20 mg tablet Take 1 Tablet (20 mg) by mouth daily. 30 Tablet 2 02/26/2023 Active ticagrelor (Brilinta) 90 mg Tablet Take 1 Tablet (90 mg) by mouth 2 times daily. 60 Tablet 2 02/26/2023 Active carvediloL (COREG) 3.125 mg tablet Take 1 Tablet (3.125 mg) by mouth 2 times daily. 180 Tablet 02/26/2023 Active sacubitriL-valsa rtan (Entresto) 24-26 mg Tablet Take 1 Tablet by mouth 2 times daily. 60 Tablet 3 02/26/2023 Active atorvastatin (LIPITOR) 80 mg tablet TAKE 1 TABLET(80 MG) BY MOUTH DAILY 90 Tablet 1 02/26/2023 Active Active Problems Patient Care Coordination No te Formatting of this note migh t be different from the original. Plumbing Warehouse Helper-Dr Jose Mclean GI-Dr. Hung Medina Problem Noted Date Diagnosed Date Tubular adenoma of colon-removed 07/27/22 023 Orthostatic lightheadedness 06/06/2022 Alcoholic hepatitis without ascites 06/06/2022 Macrocytic anemia 06/06/2022 Colitis 06/06/2022 Alcohol abuse 06/05/2022 Transaminitis 06/05/2022 Hepatomegaly 06/05/2022 Hepatic steatosis 06/05/2022 Lightheadedness 06/05/2022 Congestive heart failure 06/05/2022 KANDICE (obstructive sleep apnea) 06/05/2022 Paroxysmal atrial fibrillation 12/19/2021 Recurrent low back pain 07/19/2017 Acne vulgaris 01/25/2017 Essential hypertension 01/22/2017 Hyperlipidemia 01/22/2017 Tobacco use 01/22/2017 Encounters Date Type Department Care Team Description 10/13/2024 External Device Data [facility] ABSTRACTION Provider, Abstract 09/09/2024 External Device Data Initial Department [address] [facility] [address] PALMER: [place] [address] [facility], 08/19/2024 External Device Data [facility] ABSTRACTION Provider, Abstract 07/28/2024 External Device Data [facility] ABSTRACTION Provider, Abstract from Last 3 Months Family History Medical History Relation Name Comments Heart Disease Father Other Mother multiple sclero sis Relation Name Status Comments Father Alive Mother Alive Sister Alive Social History Tobacco Use Types Packs/Day Years Used Date Smoking Tobacco: Every Day Cigarettes Tobacco Cessation:Ready to Q uit: Not Asked; Counseling Given: Not Answered Alcohol Use Standard Drinks/Week Comments Not Currently 0 (1 standard drink = 0.6 oz pur e alcohol) Sex and Gender Information Value Date Recorded Sex Assigned at Not on file Legal Sex Male 4:29 AM DIRECTORY CLERK Gender Identity Not on file Sexual Orientation Not on file Last Filed Vital Signs Vital Sign Reading Time Taken Comments Blood Pressure 122/90 07/27/2022 2:41 PM DIRECTORY CLERK Pulse 93 07/27/2022 2:41 PM DIRECTORY CLERK Temperature 36.2 C (97.2 F) 07/27/2022 2:41 PM DIRECTORY CLERK Respiratory Rate 24 07/27/2022 2:41 PM DIRECTORY CLERK Oxygen Saturation 100% 07/27/2022 2:41 PM DIRECTORY CLERK Inhaled Oxygen Concentration - - Weight 93 kg (205 lb) 07/27/2022 12:56 PM DIRECTORY CLERK Height 180.3 cm (5' 11 ) 07/27/2022 12:56 PM DIRECTORY CLERK Body Mass Index 28.59 07/27/2022 12:56 PM DIRECTORY CLERK Plan of Treatment Health Maintenance Due Date Last Done Comments HEPATITIS B VACCINES (1 of 3 - 19+ 3-dose series) 02/29/2000 INFLUENZA VACCINE (#1) 2024 COVID-19 Vaccine ( season) 2024 06/15/2021, 10/11/2020, 09/13/2020 COLORECTAL SCREENING 07/27/2027 07/27/2022, 07/27/2022 DTAP/TDAP/TD VACCINES (2 - Td or Tdap) 08/08/2033 08/08/2023 HPV VACCINES Aged Out No longer eligi ble based on patient's age to complete this topic Procedures Procedure Name Priority Date/Time Associated Diagnosis Comments COLONOSCOPY REPORT 07/27/2022 2: 28 PM DIRECTORY CLERK from Last 3 Months or Most Recently Relevant to Health Maintenance Results * COLONOSCOPY REPORT (07/27/2022 2:28 PM DIRECTORY CLERK) Narrative Procedure Note Hung Medina MD - 07/27/2022 2:26 PM CST [facility] Patient Name: Ramón Mccullough Procedure Date: 07/27/2022 Date of : 1980 Admit Type: Outpatient Age: 42 Attending MD: Hung Medina MD, Procedure: Colonoscopy Indications: Abnormal CT of the GI tract Patient Profile: 42 y/o male presents for colonoscopy for abnormal CT with colitis. No active GI symptoms. Providers: Hung Medina MD Referring MD: Paul Woodruff MD Requesting Provider: Medicines: Monitored Anesthesia Care Complications: No immediate complications. Procedure: After I obtained informed consent, the scope was passed under direct vision. Throughout the procedure, the patient's blood pressure, pulse, and oxygen saturations were monitored continuously. The Colonoscope was introduced through the anus and advanced to the terminal ileum, with identification of the appendiceal orifice and IC valve. The colonoscopy was performed without difficulty. The patient tolerated the procedure well. The quality of the bowel preparation was evaluated using the BBPS ([place] Bowel Preparation Scale) with scores of: Right Colon = 2 (minor amount of residual staining, small fragments of stool and/or opaque liquid, but mucosa seen well), Transverse Colon = 3 (entire mucosa seen well with no residual staining, small fragments of stool or opaque liquid) and Left Colon = 3 (entire mucosa seen well with no residual staining, small fragments of stool or opaque liquid). The total BBPS score equals 8. The quality of the bowel preparation was good. Findings: The terminal ileum appeared normal. A 4 mm polyp was found in the transverse colon. The polyp was sessile. The polyp was removed with a cold snare. Resection and retrieval were complete. Verification of patient identification for the specimen was done. Impression: - The examined portion of the ileum was normal. - One 4 mm polyp in the transverse colon, removed with a cold snare. Resected and retrieved. Recommendation: - Discharge patient to home. - Resume previous diet. - Continue present medications. - Await pathology results. - Repeat colonoscopy in 5 years for surveillance based on pathology results. - A [employer] message and/or a letter will be sent to you summarizing the pathology results. Please call the GI office ([phone]) if you have not heard the results within 2 weeks. - Goal intake of 25-30 grams of fiber per day. This is a combination of dietary fiber (located on nutrition label) as well as supplemental fiber (for example Citrucel, Fibercon, Konsyl or Metamucil) if needed. Procedure Code(s): --- Professional --- 59869, Colonoscopy, flexible; with removal of tumor(s), polyp(s), or other lesion(s) by snare technique Diagnosis Code(s): --- Professional --- D12.3, Benign neoplasm of transverse colon (hepatic flexure or splenic flexure) R93.3, Abnormal findings on diagnostic imaging of other parts of digestive tract CPT copyright 2020 [employer]. All rights reserved. The codes documented in this report are preliminary and upon tile fitter review may be revised to meet current compliance requirements. Hung Medina MD 07/27/2022 2:26:43 PM Number of Addenda: 0 Estimated Blood Loss: Estimated blood loss: none. Hung Medina MD GI PROCEDURE ORDERABL ES Final Result from Last 3 Months or Most Recently Relevant to Health Maintenance Insurance [facility] BLUE ACCESS CHOICE Advance Directives For more information, please contact: [phone] * Full Code (Latest Code Status on File) Date Activated Date Inactivated Comments 07/27/2022 12:37 PM 07/27/2022 5:00 PM * Full Code Date Activated Date Inactivated Comments 06/05/2022 6:22 PM 06/07/2022 1:57 PM
--- OUTSIDE RECORDS SUMMARY | 2024-10-25 14:57 | XMS_ITS | Encounter Summary ---
Author Organization [facility] Address [address] [place] [address] Care Team Providers Care Test Borer Name Role Phone Paul Woodruff MD Primary Care Provider Skyler valenzuela Encounter Details Date Type Department Care Team (Late st Contact Info) Description 07/14/1998 Outpatient Historical [facility] [address] [facility] [address] [address] Aram Azul MD NO ADDRESS ON FILE Social History Tobacco Use Types Packs/Day Years Used Date Smoking Tobacco: Never Assessed Sex and Gender Information Value Date Recorded Sex Assigned at Not on file Legal Sex Male 4:29 AM FINGERNAIL SCULPTOR Gender Identity Not on file Sexual Orientation Not on file documented as of this encounter Plan of Treatment Not on file documented as of this encounter Visit Diagnoses Not on filedocumented in this encounter Care Teams Test Borer Relationship Specialty Start Date End Date Paul Woodruff MD PCP - General Internal Medicine 01/22/17 12/19/23 documented as of this encounter
--- OUTSIDE RECORDS SUMMARY | 2024-10-25 14:57 | XMS_ITS | Encounter Summary ---
Author Organization [facility] Address [address] [place] [address] Care Team Providers Care Fabrication Mig Welder Name Role Phone Paul Woodruff MD Primary Care Provider Skyler valenzuela Encounter Details Date Type Department Care Team (Late st Contact Info) Description 12/04/2000 Outpatient Historical [facility] Primary Care - [address] [place] [address] Wu Zeng MD [address] [place] [address] Social History Tobacco Use Types Packs/Day Years Used Date Smoking Tobacco: Never Assessed Sex and Gender Information Value Date Recorded Sex Assigned at Not on file Legal Sex Male 4:29 AM HEARING THERAPIST Gender Identity Not on file Sexual Orientation Not on file documented as of this encounter Plan of Treatment Not on file documented as of this encounter Visit Diagnoses Not on filedocumented in this encounter Care Teams Fabrication Mig Welder Relationship Specialty Start Date End Date Paul Woodruff MD PCP - General Internal Medicine 01/22/17 12/19/23 documented as of this encounter
--- OUTSIDE RECORDS SUMMARY | 2024-10-25 18:11 | XMS_ITS | Encounter Summary ---
Author Organization [facility] Address [address] [place] [address] Care Team Providers Care Licensed Aircraft Maintenance Engineer Name Role Phone Paul Woodruff MD Primary Care Provider Skyler valenzuela Encounter Details Date Type Department Care Team (Late st Contact Info) Description 07/14/1998 Outpatient Historical [facility] Pediatric[facility] [address] [facility] [address] [id number] Aram Azul MD NO ADDRESS ON FILE Social History Tobacco Use Types Packs/Day Years Used Date Smoking Tobacco: Never Assessed Sex and Gender Information Value Date Recorded Sex Assigned at Not on file Legal Sex Male 4:29 AM SHERIFFS DETECTIVE Gender Identity Not on file Sexual Orientation Not on file documented as of this encounter Plan of Treatment Not on file documented as of this encounter Visit Diagnoses Not on filedocumented in this encounter Care Teams Licensed Aircraft Maintenance Engineer Relationship Specialty Start Date End Date Paul Woodruff MD PCP - General Internal Medicine 01/22/17 12/19/23 documented as of this encounter
--- OUTSIDE RECORDS SUMMARY | 2024-10-25 18:11 | XMS_ITS | Clinical Summary ---
Author Organization [facility] Address [address] [place] [address] Care Team Providers Care Medical Insurance Collector Name Role Phone Unavailable Primary Care Provider [...] migh t be different from the original. Director Communications-Dr Jose Mclean GI-Dr. 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 Gender Identity Not on file Sexual Orientation Not on file Last Filed Vital Signs Vital Sign Reading Time Taken Comments Blood Pressure 122/90 07/27/2022 2:41 PM SPECIAL WARFARE BOAT OPERATOR Pulse 93 07/27/2022 2:41 PM SPECIAL WARFARE BOAT OPERATOR Temperature 36.2 C (97.2 F) 07/27/2022 2:41 PM SPECIAL WARFARE BOAT OPERATOR Respiratory Rate 24 07/27/2022 2:41 PM SPECIAL WARFARE BOAT OPERATOR Oxygen Saturation 100% 07/27/2022 2:41 PM SPECIAL WARFARE BOAT OPERATOR Inhaled Oxygen Concentration - - Weight 93 kg (205 lb) 07/27/2022 12:56 PM SPECIAL WARFARE BOAT OPERATOR Height 180.3 cm (5' 11 ) 07/27/2022 12:56 PM SPECIAL WARFARE BOAT OPERATOR Body Mass Index 28.59 07/27/2022 12:56 PM SPECIAL WARFARE BOAT OPERATOR Plan of Treatment Health Maintenance Due Date [...] Comments COLONOSCOPY REPORT 07/27/2022 2: 28 PM SPECIAL WARFARE BOAT OPERATOR from Last 3 Months or Most Recently Relevant to Health Maintenance Results * COLONOSCOPY REPORT (07/27/2022 2:28 PM SPECIAL WARFARE BOAT OPERATOR) Narrative Procedure Note Hung Medina MD - 07/27/2022 2:26 PM CST [facility] GI Patient Name: Ramón Mccullough Procedure Date: [...] bowel preparation was evaluated using the BBPS (Pollard Bowel Preparation Scale) with scores of: Right [...] surveillance based on pathology results. - A Adyuka message and/or a letter will be sent to you summarizing the pathology results. Please call the GI office ([phone]) if you have not heard the results within 2 weeks. - Goal intake of 25-30 grams of fiber per day. This is a combination of dietary fiber (located on nutrition label) as well as supplemental fiber (for example Citrucel, Fibercon, Konsyl or Metamucil) if needed. Procedure Code(s): --- Professional --- 49653, Colonoscopy, flexible; with removal of tumor(s), polyp(s), or other lesion(s) by snare technique Diagnosis Code(s): --- Professional --- D12.3, Benign neoplasm of transverse colon (hepatic flexure or splenic flexure) R93.3, Abnormal findings on diagnostic imaging of other parts of digestive tract CPT copyright 2020 [employer]. All rights reserved. The codes documented in this report are preliminary and upon patient escort review may be revised to meet current compliance requirements. Hung Medina MD 07/27/2022 2:26:43 PM Number of Addenda: 0 Estimated Blood Loss: Estimated blood loss: none. Hung Medina MD GI PROCEDURE ORDERABL ES Final Result from Last 3 Months or Most Recently Relevant to Health Maintenance Insurance [facility] BLUE ACCESS CHOICE Advance Directives For more information, please contact: [phone] * Full Code (Latest Code Status on File) Date Activated Date Inactivated Comments 07/27/2022 12:37 PM 07/27/2022 5:00 PM * Full Code Date Activated Date Inactivated Comments 06/05/2022 6:22 PM 06/07/2022 1:57 PM
--- OUTSIDE RECORDS SUMMARY | 2024-10-25 18:11 | XMS_ITS | Encounter Summary ---
Author Organization [facility] Address [address] [place] [address] Care Team Providers Care Staff Physical Therapy Assistant Name Role Phone Paul Woodruff MD Primary Care Provider Skyler valenzuela Encounter Details Date Type Department Care Team (Late st Contact Info) Description 12/04/2000 Outpatient Historical [facility] Primary Care - [address] [place] [address] Wu Zeng MD [address] [place] [address] Social History Tobacco Use Types Packs/Day Years Used Date Smoking Tobacco: Never Assessed Sex and Gender Information Value Date Recorded Sex Assigned at Not on file 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
--- OUTSIDE RECORDS SUMMARY | 2024-10-25 18:11 | XMS_ITS | Encounter Summary ---
Author Organization [facility] Address 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
--- OUTSIDE RECORDS SUMMARY | 2024-10-25 18:11 | XMS_ITS | Encounter Summary ---
Author Organization [facility] Address 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
--- OUTSIDE RECORDS SUMMARY | 2024-10-25 18:11 | XMS_ITS | Continuity of Care Document ---
Author Organization [facility] Address [address] [place] [address] Phone Care Team Providers Care Doper Name Role Phone Unavailable Unavailable Unavailable Procedures Procedure Date Offic/outpt [facility] 20 09 Advance Directives Directive Yes / No Effective Date File Name No Information Encounters Encounter Description Practice Location Reason(s) For Visit Diagnoses Date Provider Providers Copied on Encounter [facility], [address], [place], [place], [id number], [place] tel:[phone] [facility] No Information 3 No Information Offic/outpt [facility], [address], [place], [place], [id number], [place] tel:[phone] [facility] No Information 9 No Information [...]
--- OUTSIDE RECORDS SUMMARY | 2024-10-25 18:11 | XMS_ITS | Encounter Summary ---
Author Organization [facility] Address [address] [place] [address] Care Team Providers Care Bulk Fluids Handler Name Role Phone Paul Woodruff MD Primary Care Provider Skyler valenzuela Encounter Details Date Type Department Care Team (Late st Contact Info) Description 03/03/2004 Outpatient Historical [facility] Primary Care - [address] [place] [address] Wes Leal MD [address] [facility] [address] [place] [address] Social History Tobacco Use Types Packs/Day Years Used Date Smoking Tobacco: Never Assessed Sex and Gender Information Value Date Recorded Sex Assigned at Not on file 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
--- NOTE | 2024-10-25 18:58 | ECG_ITS ---
Test Date: 2024-10-25 19:39:38 Measurements Intervals [place] Rate: 82 P: 49 CO: 187 QRS: 22 QRSD: 120 T: -50 QT: 392 QTc: 458 Interpretive Statements SINUS RHYTHM INCOMPLETE LEFT BUNDLE BRANCH BLOCK CONSIDER INFERIOR INFARCT, AGE INDETERMINATE BORDERLINE ST-T WAVE ABNORMALITY- LATERAL LEADS ABNORMAL ECG No previous ECG available for comparison Electronically Signed On 10-26-2024 06:08:46 CDT by Nicola Vasquez D.O.
[2024-10-25 19:35] LABS: Glucose Point of Care 113 mg/dl (65-105)
[2024-10-25] MEDS: DEXTROSE 5%/0.45% SOD CHL 1,000 ML 125 ML IV CONT (19:48)
[2024-10-25 19:58] LABS: Basophils Absolute Auto 0.1 K/mm3 (0.0-0.1); Basophils Percent Auto 0.9 % (0.2-1.2); Eosinophils Percent Auto 0.3 % (0-4.4); Hematocrit 40.7 % (42.0-52.0); Immature Granulocyte Absolute 0.01 K/mm3 (0.00-0.031); Immature Granulocyte Percent A 0.2 % (0-0.5); Lymphocytes Absolute Auto 3.45 K/mm3 (0.9-3.2); Lymphocytes Percent Auto 60.1 % (18.3-44.2); Mean Corpuscular HGB Conc 34.4 g/dl (32-36); Mean Corpuscular Hemoglobin 33.2 pg (26-34); Mean Corpuscular Volume 96.4 fl (80-100); Mean Platelet Volume 9.3 fl (7.4-10.4); Monocytes Absolute Auto 0.4 K/mm3 (0.1-0.6); Monocytes Percent Auto 6.4 % (2.6-8.5); Neutrophils Absolute Auto 1.8 K/mm3 (1.3-6.7); Neutrophils Percent Auto 32.1 % (45.5-73.1); Platelet Count Result 276 k/mm3 (150-375); Red Blood Count 4.22 M/mm3 (4.6-6.20); Red Cell Distribution Width 14.4 % (11.5-14.5); White Blood Count 5.7 K/mm3 (4.5-10.0)
[2024-10-25 20:08] LABS: Alanine Aminotransferase 25 U/L (6-50); Albumin Level 4.6 g/dL (3.5-5.1); Alkaline Phosphatase 82 U/L (38-126); Anion Gap 15 mmol/L (4-12); Aspartate Amino Transferase 33 U/L (17-59); Bilirubin,Total 0.3 mg/dL (0.2-1.3); Blood Urea Nitrogen 8 mg/dL (9-20); Calcium 8.8 mg/dL (8.4-10.2); Carbon Dioxide 24 mmol/L (22-30); Chloride 108 mmol/L (98-107); Estimated CRCL calculation 141 ml/min; Estimated Glomerular Filt Rate > 60; Glucose 116 mg/dL (65-110); Potassium 3.5 mmol/L (3.4-5.0); Sodium 147 mmol/L (137-145)
[2024-10-25 20:16] LABS: Add Urine Microscopic? YES; Amphetamine Screen Urine Negative (Negative); Appearance Urine Clear (Clear); Bacteria Urine None Seen /hpf; Barbiturate Screen Urine Negative (Negative); Benzodiazepines Screen Urine Negative (Negative); Bilirubin Urine Negative (Negative); Blood Urine Negative (Negative); Cannabinoid Screen Urine Positive (Negative); Cocaine Screen Urine Negative (Negative); Color Urine Yellow (Yellow); Glucose Urine UA Negative (Negative); Ketones Urine Negative (Negative); Leukocyte Esterase Ur Negative LEU/UL (Negative); Methadone Screen Urine Negative (Negative); Nitrate Urine Negative (Negative); Non Pathogenic Casts 0-2; Opiate Screen Urine Negative (Negative); Phencyclidine Screen Urine Negative (Negative); Protein Urine 1+ mg/dL (Negative); RBC Urine 0-2 /hpf (0-2); Specific Grav Ur 1.015 (1.001-1.035); Squamous Epithelial Cell Urine None Seen /hpf (Few); WBC Urine 0-5 /hpf (0-3)
--- NOTE | 2024-10-25 20:19 | ED_ITS ---
HPI - Alcohol General Chief Complaint: Alcohol <Sidra York APRN - Last Filed: 10/26/24 02:36> Stated Complaint: ETOH withdrawl <Sidra York APRN - Last Filed: 10/26/24 02:36> Time Seen by Provider: 10/25/24 17:50 <Sidra York APRN - Last Filed: 10/26/24 02:36> History of Present Illness HPI narrative: Patient is a 44-year-old male who presents to the ER with alcohol intoxication. He reports he has been drinking alcohol for over 20 years. Patient reports he has had prior treatment for alcoholism. He reports earlier today he drank approximately 750 ml of vodka. Patient reports he has a history of high blood pressure, congestive heart failure and depression, but has not been taking any of his medications because I just don't care anymore and I don't see the point of continuing on. Patient denied suicidal or homicidal thoughts. He reports he has gone through alcohol withdrawal before and earlier today was experiencing ?shaking, sweating, and hot and cold flashes. Patient denies any abdominal pain, chest pain, shortness of breath, recent fevers. < Sidra York APRN - Last Filed: 10/26/24 02:36> Related Data Home Medications: Home Medications ?Medication ?Instructions ?Recorded ?Confirmed ?Last Taken ?Type aspirin 81 mg tablet,delayed 81 mg PO DAILY 10/26/24 10/26/24 Unknown History release (Adult Aspirin Regimen) atorvastatin 80 mg tablet 80 mg PO QPM 10/26/24 10/26/24 Unknown History carvedilol 3.125 mg tablet 3.125 mg PO Q12H 10/26/24 10/26/24 Unknown History empagliflozin 10 mg tablet 10 mg PO DAILY 10/26/24 10/26/24 Unknown History (Jardiance) escitalopram oxalate 20 mg tablet 20 mg PO DAILY 10/26/24 10/26/24 Unknown History folic acid 1 mg tablet 1 mg PO DAILY 10/26/24 10/26/24 Unknown History furosemide 20 mg tablet 20 mg PO DAILY 10/26/24 10/26/24 Unknown History omeprazole 20 mg capsule,delayed 20 mg PO DAILY 10/26/24 10/26/24 Unknown History release potassium chloride 10 mEq 10 meq PO BID 10/26/24 10/26/24 Unknown History tablet,extended release sacubitril 24 mg-valsartan 26 mg 1 tablet PO BID 10/26/24 10/26/24 Unknown History tablet (Entresto) varenicline tartrate 1 mg tablet 1 mg PO BID 10/26/24 10/26/24 Unknown History <Sidra York APRN - Last Filed: 10/26/24 02:36> Allergies/Adverse Reactions: Allergies Allergy/AdvReac Type Severity Reaction Status Date / Time No Known Allergies Allergy Verified 10/25/24 15:06 <Sidra York APRN - Last Filed: 10/26/24 02:36> Review of Systems 2 Review of Systems: All systems reviewed & are unremarkable except as noted in HPI and below <Sidra York APRN - Last Filed: 10/26/24 02:36> Exam 2 Narrative: GENERAL: Well appearing, well-nourished, non-toxic, in no acute distress. HEAD: Normocephalic, atraumatic. NECK: Supple. No adenopathy, no masses. RESPIRATORY: Airway patent, respirations nonlabored. Clear to auscultation bilaterally, no rales, rhonchi, wheezing. CARDIOVASCULAR: Regular rate and rhythm without murmurs, rubs, or gallops. Peripheral pulses 2+ and equal bilaterally. ABDOMINAL: Soft, nontender, nondistended, no hepatosplenomegaly. Normoactive BS. MUSCULOSKELETAL: Moves all extremities. Strength/ROM intact without gross deformities. SKIN: Warm, dry, normal color. No rashes. NEURO: A&O X3. Speech clear. Cranial nerves II-XII intact. No ataxic movements. PSYCHIATRIC: Tearful. <Sidra York APRN - Last Filed: 10/26/24 02:36> Course Course Emergency Course: 02:30 - This patient was signed out to me by TAYLOR York pending sober reevaluation for SI. 07:00 - Patient signed out to oncoming ED physician, Dr. Morales pending sober reevaluation for SI. <Lit Heaton MD - Last Filed: 10/26/24 06:58> 02:30 - This patient was signed out to me by TAYLOR York pending sober reevaluation for SI. 07:00 - Patient signed out to oncoming ED physician, Dr. Morales pending sober reevaluation for SI. 1016: Patient resting comfortably. Clinically sober. [place] x3. No SI or HI. No complaints of medical ailments. He will be given alcohol abuse resources and discharged. <Oscar Morales MD - Last Filed: 10/26/24 10:17> Vital Signs Vital signs: Vital Signs Temperature 97.5 F L 10/25/24 15:03 Pulse Rate 108 H 10/25/24 15:03 Respiratory Rate 16 10/25/24 15:03 Blood Pressure 152/111 H 10/25/24 15:03 Pulse Oximetry 100 10/25/24 15:03 Temperature 98.2 F 10/25/24 19:42 Pulse Rate 100 10/26/24 08:44 Respiratory Rate 16 10/26/24 08:44 Blood Pressure 147/106 H 10/26/24 08:44 Pulse Oximetry 100 10/26/24 08:44 Oxygen Delivery Room Air 10/25/24 17:53 <Sidra York, CARDIOPULMONARY PHYSICAL THERAPIST - Last Filed: 10/26/24 02:36> Vital Signs Temperature 97.5 F L 10/25/24 15:03 Pulse Rate 108 H 10/25/24 15:03 Respiratory Rate 16 10/25/24 15:03 Blood Pressure 152/111 H 10/25/24 15:03 Pulse Oximetry 100 10/25/24 15:03 Temperature 98.2 F 10/25/24 19:42 Pulse Rate 100 10/26/24 08:44 Respiratory Rate 16 10/26/24 08:44 Blood Pressure 147/106 H 10/26/24 08:44 Pulse Oximetry 100 10/26/24 08:44 Oxygen Delivery Room Air 10/25/24 17:53 <Lit Heaton MD - Last Filed: 10/26/24 06:58> Vital Signs Temperature 97.5 F L 10/25/24 15:03 Pulse Rate 108 H 10/25/24 15:03 Respiratory Rate 16 10/25/24 15:03 Blood Pressure 152/111 H 10/25/24 15:03 Pulse Oximetry 100 10/25/24 15:03 Temperature 98.2 F 10/25/24 19:42 Pulse Rate 100 10/26/24 08:44 Respiratory Rate 16 10/26/24 08:44 Blood Pressure 147/106 H 10/26/24 08:44 Pulse Oximetry 100 10/26/24 08:44 Oxygen Delivery Room Air 10/25/24 17:53 <Oscar Morales MD - Last Filed: 10/26/24 10:17> MDM - Alcohol MDM Narrative Medical decision making narrative: Patient is a 44-year-old male who presents to the ER with alcohol intoxication. He reports he has been drinking alcohol for over 20 years. Patient reports he has had prior treatment for alcoholism. He reports earlier today he drank approximately 750 ml of vodka. Patient reports he has a history of high blood pressure, congestive heart failure and depression, but has not been taking any of his medications because I just don't care anymore and I don't see the point of continuing on. Patient denied suicidal or homicidal thoughts. He reports he has gone through alcohol withdrawal before and earlier today was experiencing ?shaking, sweating, and hot and cold flashes. Patient denies any abdominal pain, chest pain, shortness of breath, recent fevers. Labs Ordered: CBC, CMP, TSH, UA, UDS, bedside glucose, ETOH Imaging Ordered: CT brain Medications Ordered: D5 0.45 @ 125/hour, Thiamine 100mg IV Results: Pt's head CT scan indicates No acute intracranial findings. Diagnosis: alcohol intoxication Consults: mental health intake 0230- Care signed out to Dr. Heaton. Pt's alcohol level is still too high for him to be evaluated by mental health intake. <Sidra York APRN - Last Filed: 10/26/24 02:36> Differential Diagnosis Differential diagnosis: Likely alcohol withdrawal delirium, hypomagnesemia, alcohol intoxication, alcohol ketoacidosis and alcohol withdrawal syndrome <Sidra York APRN - Last Filed: 10/26/24 02:36> Lab Data Result diagrams: 10/25/24 19:34 10/25/24 19:34 <Sidra York APRN - Last Filed: 10/26/24 02:36> Labs: Lab Results 10/25/24 10/25/24 10/25/24 Range/Units 19:31 19:34 19:35 WBC 5.7 (4.5-10.0) K/mm3 RBC 4.22 L (4.6-6.20) M/mm3 Hgb 14.0 (14.0-18.0) g/dL Hct 40.7 L (42.0-52.0) % MCV 96.4 (80-100) fl MCH 33.2 (26-34) pg MCHC 34.4 (32-36) g/dl RDW 14.4 (11.5-14.5) % Plt Count 276 (150-375) k/mm3 MPV 9.3 (7.4-10.4) fl Immature Gran % (Auto) 0.2 (0-0.5) % Neut % (Auto) 32.1 L (45.5-73.1) % Lymph % (Auto) 60.1 H (18.3-44.2) % [place] % (Auto) 6.4 (2.6-8.5) % Eos % (Auto) 0.3 (0-4.4) % Baso % (Auto) 0.9 (0.2-1.2) % Lymph # (Auto) 3.45 H (0.9-3.2) K/mm3 [place] # (Auto) 0.4 (0.1-0.6) K/mm3 Eos # (Auto) 0.0 (0-0.3) K/mm3 Baso # (Auto) 0.1 (0.0-0.1) K/mm3 Abs Immat Gran (auto) 0.01 (0.00-0.031) K/mm3 Absolute Neuts (auto) 1.8 (1.3-6.7) K/mm3 Absolute Nucleated RBC 0.000 (0.0-0.012) K/mm3 Nucleated RBC % 0.0 (0.0-0.2) % Sodium 147 H (137-145) mmol/L Potassium 3.5 (3.4-5.0) mmol/L Chloride 108 H (98-107) mmol/L Carbon Dioxide 24 (22-30) mmol/L Anion Gap 15 H (4-12) mmol/L BUN 8 L (9-20) mg/dL Creatinine 0.66 L (0.7-1.3) mg/dL Estim Creat Clear Calc 141 ml/min Estimated GFR > 60 (59 - ) Glucose 116 H (65-110) mg/dL POC Capillary Glucose 113 H (65-105) mg/dl Calcium 8.8 (8.4-10.2) mg/dL Total Bilirubin 0.3 (0.2-1.3) mg/dL AST 33 (17-59) U/L ALT 25 (6-50) U/L Alkaline Phosphatase 82 (38-126) U/L Total Protein 8.0 (6.3-8.2) g/dL Albumin 4.6 (3.5-5.1) g/dL TSH (Reflex) 0.276 L (0.465-4.68) uIU/mL Free T4 1.15 (0.78-2.19) ng/dL Total T3 1.20 (0.97-1.69) NG/ML Urine Color (Yellow) Urine Appearance (Clear) Urine pH (5.0-9.0) Ur Specific [place] (1.001-1.035) Urine Protein (Negative) mg/dL Urine Glucose (UA) (Negative) mg/dL Urine Ketones (Negative) mg/dL Ur Blood (Man) (Negative) Urine Nitrate (Negative) Urine Bilirubin (Negative) Urine Urobilinogen (<2.0) mg/dL Leukocyte Esterase Rfl (Negative) MADDISON/UL Urine RBC (0-2) /hpf Urine WBC (0-3) /hpf Ur Squamous Epith Cells (Few) /hpf Urine Bacteria /hpf Urine Casts Urine Opiates Screen (Negative) Urine Methadone Screen (Negative) Ur Barbiturates Screen (Negative) Ur Phencyclidine Scrn (Negative) Ur Amphetamine Screen (Negative) U Benzodiazepines Scrn (Negative) Urine Cocaine Screen (Negative) U Cannabinoids Screen (Negative) Ethyl Alcohol 330 H* (<10) mg/dL Influenza A (RT-PCR) (Negative) Influenza B (RT-PCR) (Negative) RSV (RT-PCR) (Negative) SARS-CoV-2 RNA (RT-PCR) (Negative) 10/25/24 10/26/24 Range/Units 19:51 02:58 WBC (4.5-10.0) K/mm3 RBC (4.6-6.20) M/mm3 Hgb (14.0-18.0) g/dL Hct (42.0-52.0) % MCV (80-100) fl MCH (26-34) pg MCHC (32-36) g/dl RDW (11.5-14.5) % Plt Count (150-375) k/mm3 MPV (7.4-10.4) fl Immature Gran % (Auto) (0-0.5) % Neut % (Auto) (45.5-73.1) % Lymph % (Auto) (18.3-44.2) % [place] % (Auto) (2.6-8.5) % Eos % (Auto) (0-4.4) % Baso % (Auto) (0.2-1.2) % Lymph # (Auto) (0.9-3.2) K/mm3 [place] # (Auto) (0.1-0.6) K/mm3 Eos # (Auto) (0-0.3) K/mm3 Baso # (Auto) (0.0-0.1) K/mm3 Abs Immat Gran (auto) (0.00-0.031) K/mm3 Absolute Neuts (auto) (1.3-6.7) K/mm3 Absolute Nucleated RBC (0.0-0.012) K/mm3 Nucleated RBC % (0.0-0.2) % Sodium (137-145) mmol/L Potassium (3.4-5.0) mmol/L Chloride (98-107) mmol/L Carbon Dioxide (22-30) mmol/L Anion Gap (4-12) mmol/L BUN (9-20) mg/dL Creatinine (0.7-1.3) mg/dL Estim Creat Clear Calc ml/min Estimated GFR (59 - ) Glucose (65-110) mg/dL POC Capillary Glucose (65-105) mg/dl Calcium (8.4-10.2) mg/dL Total Bilirubin (0.2-1.3) mg/dL AST (17-59) U/L ALT (6-50) U/L Alkaline Phosphatase (38-126) U/L Total Protein (6.3-8.2) g/dL Albumin (3.5-5.1) g/dL TSH (Reflex) (0.465-4.68) uIU/mL Free T4 (0.78-2.19) ng/dL Total T3 (0.97-1.69) NG/ML Urine Color Yellow (Yellow) Urine Appearance Clear (Clear) Urine pH 6.0 (5.0-9.0) Ur Specific [place] 1.015 (1.001-1.035) Urine Protein 1+ H (Negative) mg/dL Urine Glucose (UA) Negative (Negative) mg/dL Urine Ketones Negative (Negative) mg/dL Ur Blood (Man) Negative (Negative) Urine Nitrate Negative (Negative) Urine Bilirubin Negative (Negative) Urine Urobilinogen 1.0 (<2.0) mg/dL Leukocyte Esterase Rfl Negative (Negative) MADDISON/UL Urine RBC 0-2 (0-2) /hpf Urine WBC 0-5 (0-3) /hpf Ur Squamous Epith Cells None seen (Few) /hpf Urine Bacteria None seen /hpf Urine Casts 0-2 Urine Opiates Screen Negative (Negative) Urine Methadone Screen Negative (Negative) Ur Barbiturates Screen Negative (Negative) Ur Phencyclidine Scrn Negative (Negative) Ur Amphetamine Screen Negative (Negative) U Benzodiazepines Scrn Negative (Negative) Urine Cocaine Screen Negative (Negative) U Cannabinoids Screen Positive A (Negative) Ethyl Alcohol 222 (<10) mg/dL Influenza A (RT-PCR) Negative (Negative) Influenza B (RT-PCR) Negative (Negative) RSV (RT-PCR) Negative (Negative) SARS-CoV-2 RNA (RT-PCR) Negative (Negative) <Sidra York, CARDIOPULMONARY PHYSICAL THERAPIST - Last Filed: 10/26/24 02:36> Lab Results 10/25/24 10/25/24 10/25/24 Range/Units 19:31 19:34 19:35 WBC 5.7 (4.5-10.0) K/mm3 RBC 4.22 L (4.6-6.20) M/mm3 Hgb 14.0 (14.0-18.0) g/dL Hct 40.7 L (42.0-52.0) % MCV 96.4 (80-100) fl MCH 33.2 (26-34) pg MCHC 34.4 (32-36) g/dl RDW 14.4 (11.5-14.5) % Plt Count 276 (150-375) k/mm3 MPV 9.3 (7.4-10.4) fl Immature Gran % (Auto) 0.2 (0-0.5) % Neut % (Auto) 32.1 L (45.5-73.1) % Lymph % (Auto) 60.1 H (18.3-44.2) % [place] % (Auto) 6.4 (2.6-8.5) % Eos % (Auto) 0.3 (0-4.4) % Baso % (Auto) 0.9 (0.2-1.2) % Lymph # (Auto) 3.45 H (0.9-3.2) K/mm3 [place] # (Auto) 0.4 (0.1-0.6) K/mm3 Eos # (Auto) 0.0 (0-0.3) K/mm3 Baso # (Auto) 0.1 (0.0-0.1) K/mm3 Abs Immat Gran (auto) 0.01 (0.00-0.031) K/mm3 Absolute Neuts (auto) 1.8 (1.3-6.7) K/mm3 Absolute Nucleated RBC 0.000 (0.0-0.012) K/mm3 Nucleated RBC % 0.0 (0.0-0.2) % Sodium 147 H (137-145) mmol/L Potassium 3.5 (3.4-5.0) mmol/L Chloride 108 H (98-107) mmol/L Carbon Dioxide 24 (22-30) mmol/L Anion Gap 15 H (4-12) mmol/L BUN 8 L (9-20) mg/dL Creatinine 0.66 L (0.7-1.3) mg/dL Estim Creat Clear Calc 141 ml/min Estimated GFR > 60 (59 - ) Glucose 116 H (65-110) mg/dL POC Capillary Glucose 113 H (65-105) mg/dl Calcium 8.8 (8.4-10.2) mg/dL Total Bilirubin 0.3 (0.2-1.3) mg/dL AST 33 (17-59) U/L ALT 25 (6-50) U/L Alkaline Phosphatase 82 (38-126) U/L Total Protein 8.0 (6.3-8.2) g/dL Albumin 4.6 (3.5-5.1) g/dL TSH (Reflex) 0.276 L (0.465-4.68) uIU/mL Free T4 1.15 (0.78-2.19) ng/dL Total T3 1.20 (0.97-1.69) NG/ML Urine Color (Yellow) Urine Appearance (Clear) Urine pH (5.0-9.0) Ur Specific [place] (1.001-1.035) Urine Protein (Negative) mg/dL Urine Glucose (UA) (Negative) mg/dL Urine Ketones (Negative) mg/dL Ur Blood (Man) (Negative) Urine Nitrate (Negative) Urine Bilirubin (Negative) Urine Urobilinogen (<2.0) mg/dL Leukocyte Esterase Rfl (Negative) MADDISON/UL Urine RBC (0-2) /hpf Urine WBC (0-3) /hpf Ur Squamous Epith Cells (Few) /hpf Urine Bacteria /hpf Urine Casts Urine Opiates Screen (Negative) Urine Methadone Screen (Negative) Ur Barbiturates Screen (Negative) Ur Phencyclidine Scrn (Negative) Ur Amphetamine Screen (Negative) U Benzodiazepines Scrn (Negative) Urine Cocaine Screen (Negative) U Cannabinoids Screen (Negative) Ethyl Alcohol 330 H* (<10) mg/dL Influenza A (RT-PCR) (Negative) Influenza B (RT-PCR) (Negative) RSV (RT-PCR) (Negative) SARS-CoV-2 RNA (RT-PCR) (Negative) 10/25/24 10/26/24 Range/Units 19:51 02:58 WBC (4.5-10.0) K/mm3 RBC (4.6-6.20) M/mm3 Hgb (14.0-18.0) g/dL Hct (42.0-52.0) % MCV (80-100) fl MCH (26-34) pg MCHC (32-36) g/dl RDW (11.5-14.5) % Plt Count (150-375) k/mm3 MPV (7.4-10.4) fl Immature Gran % (Auto) (0-0.5) % Neut % (Auto) (45.5-73.1) % Lymph % (Auto) (18.3-44.2) % [place] % (Auto) (2.6-8.5) % Eos % (Auto) (0-4.4) % Baso % (Auto) (0.2-1.2) % Lymph # (Auto) (0.9-3.2) K/mm3 [place] # (Auto) (0.1-0.6) K/mm3 Eos # (Auto) (0-0.3) K/mm3 Baso # (Auto) (0.0-0.1) K/mm3 Abs Immat Gran (auto) (0.00-0.031) K/mm3 Absolute Neuts (auto) (1.3-6.7) K/mm3 Absolute Nucleated RBC (0.0-0.012) K/mm3 Nucleated RBC % (0.0-0.2) % Sodium (137-145) mmol/L Potassium (3.4-5.0) mmol/L Chloride (98-107) mmol/L Carbon Dioxide (22-30) mmol/L Anion Gap (4-12) mmol/L BUN (9-20) mg/dL Creatinine (0.7-1.3) mg/dL Estim Creat Clear Calc ml/min Estimated GFR (59 - ) Glucose (65-110) mg/dL POC Capillary Glucose (65-105) mg/dl Calcium (8.4-10.2) mg/dL Total Bilirubin (0.2-1.3) mg/dL AST (17-59) U/L ALT (6-50) U/L Alkaline Phosphatase (38-126) U/L Total Protein (6.3-8.2) g/dL Albumin (3.5-5.1) g/dL TSH (Reflex) (0.465-4.68) uIU/mL Free T4 (0.78-2.19) ng/dL Total T3 (0.97-1.69) NG/ML Urine Color Yellow (Yellow) Urine Appearance Clear (Clear) Urine pH 6.0 (5.0-9.0) Ur Specific [place] 1.015 (1.001-1.035) Urine Protein 1+ H (Negative) mg/dL Urine Glucose (UA) Negative (Negative) mg/dL Urine Ketones Negative (Negative) mg/dL Ur Blood (Man) Negative (Negative) Urine Nitrate Negative (Negative) Urine Bilirubin Negative (Negative) Urine Urobilinogen 1.0 (<2.0) mg/dL Leukocyte Esterase Rfl Negative (Negative) MADDISON/UL Urine RBC 0-2 (0-2) /hpf Urine WBC 0-5 (0-3) /hpf Ur Squamous Epith Cells None seen (Few) /hpf Urine Bacteria None seen /hpf Urine Casts 0-2 Urine Opiates Screen Negative (Negative) Urine Methadone Screen Negative (Negative) Ur Barbiturates Screen Negative (Negative) Ur Phencyclidine Scrn Negative (Negative) Ur Amphetamine Screen Negative (Negative) U Benzodiazepines Scrn Negative (Negative) Urine Cocaine Screen Negative (Negative) U Cannabinoids Screen Positive A (Negative) Ethyl Alcohol 222 (<10) mg/dL Influenza A (RT-PCR) Negative (Negative) Influenza B (RT-PCR) Negative (Negative) RSV (RT-PCR) Negative (Negative) SARS-CoV-2 RNA (RT-PCR) Negative (Negative) <Lit Heaton MD - Last Filed: 10/26/24 06:58> Lab Results 10/25/24 10/25/24 10/25/24 Range/Units 19:31 19:34 19:35 WBC 5.7 (4.5-10.0) K/mm3 RBC 4.22 L (4.6-6.20) M/mm3 Hgb 14.0 (14.0-18.0) g/dL Hct 40.7 L (42.0-52.0) % MCV 96.4 (80-100) fl MCH 33.2 (26-34) pg MCHC 34.4 (32-36) g/dl RDW 14.4 (11.5-14.5) % Plt Count 276 (150-375) k/mm3 MPV 9.3 (7.4-10.4) fl Immature Gran % (Auto) 0.2 (0-0.5) % Neut % (Auto) 32.1 L (45.5-73.1) % Lymph % (Auto) 60.1 H (18.3-44.2) % [place] % (Auto) 6.4 (2.6-8.5) % Eos % (Auto) 0.3 (0-4.4) % Baso % (Auto) 0.9 (0.2-1.2) % Lymph # (Auto) 3.45 H (0.9-3.2) K/mm3 [place] # (Auto) 0.4 (0.1-0.6) K/mm3 Eos # (Auto) 0.0 (0-0.3) K/mm3 Baso # (Auto) 0.1 (0.0-0.1) K/mm3 Abs Immat Gran (auto) 0.01 (0.00-0.031) K/mm3 Absolute Neuts (auto) 1.8 (1.3-6.7) K/mm3 Absolute Nucleated RBC 0.000 (0.0-0.012) K/mm3 Nucleated RBC % 0.0 (0.0-0.2) % Sodium 147 H (137-145) mmol/L Potassium 3.5 (3.4-5.0) mmol/L Chloride 108 H (98-107) mmol/L Carbon Dioxide 24 (22-30) mmol/L Anion Gap 15 H (4-12) mmol/L BUN 8 L (9-20) mg/dL Creatinine 0.66 L (0.7-1.3) mg/dL Estim Creat Clear Calc 141 ml/min Estimated GFR > 60 (59 - ) Glucose 116 H (65-110) mg/dL POC Capillary Glucose 113 H (65-105) mg/dl Calcium 8.8 (8.4-10.2) mg/dL Total Bilirubin 0.3 (0.2-1.3) mg/dL AST 33 (17-59) U/L ALT 25 (6-50) U/L Alkaline Phosphatase 82 (38-126) U/L Total Protein 8.0 (6.3-8.2) g/dL Albumin 4.6 (3.5-5.1) g/dL TSH (Reflex) 0.276 L (0.465-4.68) uIU/mL Free T4 1.15 (0.78-2.19) ng/dL Total T3 1.20 (0.97-1.69) NG/ML Urine Color (Yellow) Urine Appearance (Clear) Urine pH (5.0-9.0) Ur Specific [place] (1.001-1.035) Urine Protein (Negative) mg/dL Urine Glucose (UA) (Negative) mg/dL Urine Ketones (Negative) mg/dL Ur Blood (Man) (Negative) Urine Nitrate (Negative) Urine Bilirubin (Negative) Urine Urobilinogen (<2.0) mg/dL Leukocyte Esterase Rfl (Negative) MADDISON/UL Urine RBC (0-2) /hpf Urine WBC (0-3) /hpf Ur Squamous Epith Cells (Few) /hpf Urine Bacteria /hpf Urine Casts Urine Opiates Screen (Negative) Urine Methadone Screen (Negative) Ur Barbiturates Screen (Negative) Ur Phencyclidine Scrn (Negative) Ur Amphetamine Screen (Negative) U Benzodiazepines Scrn (Negative) Urine Cocaine Screen (Negative) U Cannabinoids Screen (Negative) Ethyl Alcohol 330 H* (<10) mg/dL Influenza A (RT-PCR) (Negative) Influenza B (RT-PCR) (Negative) RSV (RT-PCR) (Negative) SARS-CoV-2 RNA (RT-PCR) (Negative) 10/25/24 10/26/24 Range/Units 19:51 02:58 WBC (4.5-10.0) K/mm3 RBC (4.6-6.20) M/mm3 Hgb (14.0-18.0) g/dL Hct (42.0-52.0) % MCV (80-100) fl MCH (26-34) pg MCHC (32-36) g/dl RDW (11.5-14.5) % Plt Count (150-375) k/mm3 MPV (7.4-10.4) fl Immature Gran % (Auto) (0-0.5) % Neut % (Auto) (45.5-73.1) % Lymph % (Auto) (18.3-44.2) % [place] % (Auto) (2.6-8.5) % Eos % (Auto) (0-4.4) % Baso % (Auto) (0.2-1.2) % Lymph # (Auto) (0.9-3.2) K/mm3 [place] # (Auto) (0.1-0.6) K/mm3 Eos # (Auto) (0-0.3) K/mm3 Baso # (Auto) (0.0-0.1) K/mm3 Abs Immat Gran (auto) (0.00-0.031) K/mm3 Absolute Neuts (auto) (1.3-6.7) K/mm3 Absolute Nucleated RBC (0.0-0.012) K/mm3 Nucleated RBC % (0.0-0.2) % Sodium (137-145) mmol/L Potassium (3.4-5.0) mmol/L Chloride (98-107) mmol/L Carbon Dioxide (22-30) mmol/L Anion Gap (4-12) mmol/L BUN (9-20) mg/dL Creatinine (0.7-1.3) mg/dL Estim Creat Clear Calc ml/min Estimated GFR (59 - ) Glucose (65-110) mg/dL POC Capillary Glucose (65-105) mg/dl Calcium (8.4-10.2) mg/dL Total Bilirubin (0.2-1.3) mg/dL AST (17-59) U/L ALT (6-50) U/L Alkaline Phosphatase (38-126) U/L Total Protein (6.3-8.2) g/dL Albumin (3.5-5.1) g/dL TSH (Reflex) (0.465-4.68) uIU/mL Free T4 (0.78-2.19) ng/dL Total T3 (0.97-1.69) NG/ML Urine Color Yellow (Yellow) Urine Appearance Clear (Clear) Urine pH 6.0 (5.0-9.0) Ur Specific [place] 1.015 (1.001-1.035) Urine Protein 1+ H (Negative) mg/dL Urine Glucose (UA) Negative (Negative) mg/dL Urine Ketones Negative (Negative) mg/dL Ur Blood (Man) Negative (Negative) Urine Nitrate Negative (Negative) Urine Bilirubin Negative (Negative) Urine Urobilinogen 1.0 (<2.0) mg/dL Leukocyte Esterase Rfl Negative (Negative) MADDISON/UL Urine RBC 0-2 (0-2) /hpf Urine WBC 0-5 (0-3) /hpf Ur Squamous Epith Cells None seen (Few) /hpf Urine Bacteria None seen /hpf Urine Casts 0-2 Urine Opiates Screen Negative (Negative) Urine Methadone Screen Negative (Negative) Ur Barbiturates Screen Negative (Negative) Ur Phencyclidine Scrn Negative (Negative) Ur Amphetamine Screen Negative (Negative) U Benzodiazepines Scrn Negative (Negative) Urine Cocaine Screen Negative (Negative) U Cannabinoids Screen Positive A (Negative) Ethyl Alcohol 222 (<10) mg/dL Influenza A (RT-PCR) Negative (Negative) Influenza B (RT-PCR) Negative (Negative) RSV (RT-PCR) Negative (Negative) SARS-CoV-2 RNA (RT-PCR) Negative (Negative) <Oscar Morales MD - Last Filed: 10/26/24 10:17> Imaging Data Radiologist's impression: ITS Impressions Head CT 10/25/24 19:29 IMPRESSION: No acute intracranial findings. <Sidra York APRN - Last Filed: 10/26/24 02:36> ITS Impressions Head CT 10/25/24 19:29 IMPRESSION: No acute intracranial findings. <Lit Heaton MD - Last Filed: 10/26/24 06:58> ITS Impressions Head CT 10/25/24 19:29 IMPRESSION: No acute intracranial findings. <Oscar Morales MD - Last Filed: 10/26/24 10:17> Discharge Plan Discharge Clinical Impression: Alcoholic intoxication <Sidra York APRN - Last Filed: 10/26/24 02:36> Patient Disposition: Home <Sidra York APRN - Last Filed: 10/26/24 02:36> Condition: Stable <Sidra York APRN - Last Filed: 10/26/24 02:36> Instructions: Antibiotic Form <Sidra York APRN - Last Filed: 10/26/24 02:36> Additional Instructions: Return ER if you have chest pain and shortness of breath, he cannot keep down food or water, you lose consciousness, or you have additional concerns. <Sirda York APRN - Last Filed: 10/26/24 02:36> Patient Language: Maltese <Sidra York APRN - Last Filed: 10/26/24 02:36> Prescriptions: No Action atorvastatin 80 mg tablet 80 mg PO QPM carvedilol 3.125 mg tablet 3.125 mg PO Q12H Jardiance 10 mg tablet 10 mg PO DAILY escitalopram oxalate 20 mg tablet 20 mg PO DAILY folic acid 1 mg tablet 1 mg PO DAILY furosemide 20 mg tablet 20 mg PO DAILY Entresto 24-26 mg tablet 1 tablet PO BID varenicline tartrate 1 mg tablet 1 mg PO BID potassium chloride 10 mEq tablet extended release 10 meq PO BID omeprazole 20 mg capsule,delayed release(DR/EC) 20 mg PO DAILY aspirin [Adult Aspirin Regimen] 81 mg tablet,delayed release (DR/EC) 81 mg PO DAILY <Sidra York APRN - Last Filed: 10/26/24 02:36> Follow-up/Referrals: Bebeto Manriquez MD [Primary Care Provider] - 1 Week <Sidra York APRN - Last Filed: 10/26/24 02:36>
[2024-10-25 20:28] LABS: Ethanol 330 mg/dL (<10)
[2024-10-25 20:42] LABS: Thyroid Stimulating Hormone Reflex 0.276 uIU/mL (0.465-4.68)
[2024-10-25 21:53] LABS: Free T4 Free Thyroxine Reflex 1.15 ng/dL (0.78-2.19)
[2024-10-25] MEDS: LORazepam INJ (*CRX) 2 MG/ML VIAL IV PUSH (22:22)
[2024-10-26 01:00] VITALS: BP 111/80; PULSE 87; RESP 18
[2024-10-26 03:15] VITALS: BP 110/77; PULSE 85; RESP 19; O2SAT 99
[2024-10-26 03:16] LABS: Ethanol 222 mg/dL (<10)
--- NOTE | 2024-10-26 03:22 | PC.NURSE ---
Pt lying on stretcher respirations even and unlabored. Pt appears in NAD.
[2024-10-26 03:41] LABS: Influenza A QL RT-PCR Negative (Negative); Influenza B QL RT-PCR Negative (Negative); RSV RNA, RT-PCR Negative (Negative); SARS-CoV-2 RNA PCR Negative (Negative)
[2024-10-26] MEDS: DEXTROSE 5%/0.45% SOD CHL 1,000 ML 125 ML IV CONT (03:56)
[2024-10-26 07:12] VITALS: BP 131/95; PULSE 103; RESP 16; O2SAT 100
[2024-10-26 08:44] VITALS: BP 147/106; PULSE 100; RESP 16; O2SAT 100
[2024-10-26] MEDS: THIAMINE HCL 200 MG/2 ML VIAL 100 MG IV PUSH (09:02)
--- NOTE | 2024-10-26 10:33 | PC.NURSE ---
pt's father with be here to pear pick[place] pt in about 30 min. Pt will wait for his ride in the waiting room.
== END 2024-10-26 10:34 | disposition home or self-care (01) ==
PROVIDERS: Registered Nurse; Emergency Provider Preventive Medicine Aerospace Medicine; PCP Internal Medicine
DX: F10.229 Alcohol dependence with intoxication, unspecified (principal); Y90.8 Blood alcohol level of 240 mg/100 ml or more; Z11.52 Encounter for screening for COVID-19; I11.0 Hypertensive heart disease with heart failure; I50.9 Heart failure, unspecified; F32.A Depression, unspecified; Z79.84 Long term (current) use of oral hypoglycemic drugs; Z79.899 Other long term (current) drug therapy; Z79.82 Long term (current) use of aspirin; I44.7 Left bundle-branch block, unspecified; R94.31 Abnormal electrocardiogram [ECG] [EKG]
CPT/HCPCS: 36415; 70450; 80053; 80307; 81001; 82077; 82948; 84439; 84443; 84480; 85025; 87637; 93005; 96361; 96374; 99284; J2060; J3411